=== PATIENT | female | born 1970 | race Caucasian/White ===

== ENCOUNTER 2018-03-23 09:03 | Emergency (ER) | payer OTHER, MEDICAID, SELFPAY ==
[2018-03-23 09:42] VITALS: BP 133/78; PULSE 81; RESP 18; TEMP 36.7; O2SAT 95
--- NOTE | 2018-03-23 09:45 | ED.ABDPAIN ---
HPI - Abdominal Pain General Chief Complaint: Abdominal Pain Stated Complaint: gallbladder issues Time Seen by Provider: 03/23/18 09:19 Source: patient Mode of arrival: ambulatory Limitations: no limitations History of Present Illness HPI narrative: 47-year-old female here for evaluation of right upper quadrant pain. Patient states that she had similar symptoms 2 years ago but has not had any symptoms since then. She states that last evening she had a episode of right upper quadrant pain lasting several minutes when it came on then resolving. This happen several different times. Denies any change in her diet. Denies ever having her gallbladder evaluated in the past. Related Data Home Medications Medication Instructions Recorded Confirmed albuterol sulfate [ProAir HFA] 2 puff INHALATION Q4H PRN 03/23/18 03/23/18 citalopram 1 tab PO QPM 03/23/18 03/23/18 citalopram 1 tab PO QPM 03/23/18 03/23/18 metoprolol tartrate 1 tab PO QPM 03/23/18 03/23/18 Allergies Allergy/AdvReac Type Severity Reaction Status Date / Time amoxicillin [AMOXICILLIN] Allergy Mild Hives Unverified 01/12/18 11:44 Sulfa (Sulfonamide Allergy Mild Unverified 01/12/18 11:44 Antibiotics) [SULFA (SULFONAMIDE ANTIBIOTICS)] erythromycin base Allergy Verified 03/23/18 09:42 tetracycline Allergy Verified 03/23/18 09:42 Review of Systems Constitutional Denies chills, Denies fever(s), Denies lethargy and Denies weakness Cardiovascular Denies chest pain, Denies irregular heart rhythm, Denies lightheadedness, Denies palpitations, Denies dyspnea, Denies dyspnea on exertion and Denies orthopnea Respiratory Denies cough, Denies dyspnea, Denies dyspnea on exertion and Denies wheezing Gastrointestinal Gastrointestinal: Reports abdominal pain, Denies change in bowel habits, Denies change in stool character, Denies constipation, Denies heartburn, Denies nausea and Denies vomiting Genitourinary Denies difficulty voiding and Denies dysuria Integumentary/Breasts Denies pruritus, Denies erythema, Denies rash and Denies wounds Neurologic Denies weakness Endocrine Denies palpitations Hematologic/Lymphatic Denies easy bruising Allergic/Immunologic Denies wheezing [facility] History History of breast augmentation Status post delivery Status post tubal ligation (07/01/15) Family History Father Age: 69 Hypertension Mother Age: 67 High cholesterol Social History Smoking Status: Current every day smoker Exam Initial Vital Signs Initial Vital Signs: Vital Signs Temperature 98.1 F 03/23/18 09:42 Pulse Rate 81 03/23/18 09:42 Respiratory Rate 18 03/23/18 09:42 Blood Pressure 133/78 H 03/23/18 09:42 Pulse Oximetry 95 03/23/18 09:42 Const General: cooperative and well developed Nutritional Appearance: well nourished Orientation: alert, awake, oriented x3 and not confused Resp Effort & Inspection: normal respiratory effort, able to speak in complete sentences, no respiratory distress and no use of accessory muscles Auscultation: clear to auscultation bilaterally, no rales, no rhonchi and no wheezes Cardio Rate: regular rate Rhythm: regular rhythm Heart Sounds: no click, no gallops, no murmurs and no rubs Pulses: normal peripheral pulses GI Inspection: non-distended Palpation: soft, No firm, No guarding and tender (Right upper quadrant) Back/Spine/Pelvis Back: No CVA tenderness Skin General: no rashes or lesions noted, No jaundice and No petechiae Neuro General: alert, awake and oriented x3 Cognition: normal cognition Speech: speech normal Extrem General: normal to inspection Course Orders Ordered: ED Orders 03/23/18 09:53 US abdomen complete Stat 03/23/18 10:35 Complete Blood Count AUTO DIFF Stat Comprehensive Metabolic Panel Stat Lipase Stat Vital Signs - 8 hr 03/23/18 09:42 Temperature 98.1 F Pulse Rate 81 Respiratory Rate 18 Blood Pressure 133/78 H Pulse Oximetry 95 MDM - Abdominal Pain Lab Data Attestation: I reviewed the patient's lab results. Result diagrams: 03/23/18 10:35 03/23/18 10:35 Lab Results 03/23/18 03/23/18 Range/Units 10:35 10:35 WBC 12.2 H (4.5-11.0) X10^3/uL RBC 4.83 (4.0-5.2) X10^6/uL Hgb 14.2 (12.0-16.0) g/dL Hct 42.5 (36-46) % MCV 87.9 (80-100) fL MCH 29.3 (26-34) PG MCHC 33.3 (30-36) % RDW 15.4 H (11.6-14.8) % Plt Count 270 (150-400) X10^3/uL Neut % (Auto) 70.2 (50-75) % Lymph % (Auto) 20.7 L (25-40) % Patrick % (Auto) 6.5 (3-14) % Eos % (Auto) 1.9 L (2-4) % Baso % (Auto) 0.7 (0-2) % Neut # (Auto) 8600 H (3602-4082) /uL Sodium 139 (137-145) mmol/L Potassium 4.7 (3.4-5.1) mmol/L Chloride 101 (98-107) mmol/L Carbon Dioxide 30 (22-32) mmol/L BUN 9 (7-17) mg/dL Creatinine 0.50 L (0.52-1.04) mg/dL Estimated GFR > 60.0 (>60) mL/min BUN/Creatinine Ratio 18.0 (6-22) Glucose 104 H (70-100) mg/dL Calcium 8.9 (8.4-10.2) mg/dL Total Bilirubin 0.4 (0.2-1.3) mg/dL AST 19 (14-36) IU/L ALT 22 (9-52) IU/L Alkaline Phosphatase 84 (38-126) U/L Total Protein 7.2 (6.3-8.2) g/dL Albumin 4.1 (3.5-5.0) g/dL Globulin 3.1 (1.7-4.1) g/dL Albumin/Globulin Ratio 1.3 (1.0-2.8) Lipase 46 (23-300) U/L Imaging Data Right upper quadrant ultrasound: Radiologist's impression: PROCEDURE: US ABDOMEN COMPLETE INDICATIONS: Right upper quadrant abdominal pain concern for gallbladder TECHNIQUE: Real-time scanning was performed of the abdominal and retroperitoneal organs, with image documentation. COMPARISON: None. FINDINGS: Liver: Liver is mildly enlarged in size 19.2 cm and hyperechoic in echotexture. Gallbladder: Gallbladder is clear with normal wall thickness. Biliary ducts: Intrahepatic bile ducts are non-dilated. Extrahepatic bile duct caliber measures 7 mm. Normal is 6-7 mm or less in diameter, or 10 mm or less post-cholecystectomy. Pancreas: Pancreas is obscured by bowel gas. Spleen: Spleen is normal in size and homogeneous in echotexture. Kidneys: Kidneys are normal in size and echotexture. Right kidney measures 12.0 cm long; left kidney measures 13.8 cm long. No hydronephrosis or nephrolithiasis. No solid masses. Aorta: Obscured by bowel gas Iliacs: Obscured by bowel gas IVC: Not visualized Miscellaneous: No free abdominal fluid. IMPRESSION: 1. Mild hepatomegaly and moderate steatosis 2. No apparent biliary abnormality. Common bile duct at the upper limits of normal in size. 3. Considerable bowel gas obscuring the pancreas, aortoiliac vessels and inferior vena cava. Dictated by: Yaakov Arenas M.D. on 03/23/2018 at 10:42 Approved by: Yaakov Arenas M.D. on 03/23/2018 at 10:46 [facility] Narrative Medical decision making narrative: Patient is nontoxic appearing. Has a benign abdominal exam today. Labs unremarkable. Right upper quadrant ultrasound negative for acute cholecystitis. However I do suspect that she does have gallbladder pathology given her history and physical exam and her age and her weight. Patient is instructed that she needed to contact her primary doctor for follow-up in to discuss the indications for further imaging or General surgery referral. She was given return precautions. She expressed understanding and agreement with plan Discharge Plan Departure Patient Disposition: Home, Self-Care Clinical Impression: Abdominal pain Instructions: Gallstones (Alternative Therapy), DI for Gallstones, DI for Abdominal Pain-Adult Activity Restrictions/Additional Instructions: Recommend that you contact your primary care doctor to discuss the indications for further imaging or referral to see GI or General surgery. Return to the emergency department for any new or worsening symptoms Prescriptions: No Action metoprolol tartrate 100 mg tablet 1 tab PO QPM RF: 0 citalopram 10 mg tablet 1 tab PO QPM RF: 0 citalopram 20 mg tablet 1 tab PO QPM RF: 0 albuterol sulfate [ProAir HFA] 90 mcg/actuation HFA aerosol inhaler 2 puff Inhalation Q4H PRN (Reason: Shortness Of Breath) RF: 0
--- NOTE | 2018-03-23 09:53 | DI.US.S_ITS ---
PROCEDURE: US ABDOMEN COMPLETE INDICATIONS: Right upper quadrant abdominal pain concern for gallbladder TECHNIQUE: Real-time scanning was performed of the abdominal and retroperitoneal organs, with image documentation. COMPARISON: None. FINDINGS: Liver: Liver is mildly enlarged in size 19.2 cm and hyperechoic in echotexture. Gallbladder: Gallbladder is clear with normal wall thickness. Biliary ducts: Intrahepatic bile ducts are non-dilated. Extrahepatic bile duct caliber measures 7 mm. Normal is 6-7 mm or less in diameter, or 10 mm or less post-cholecystectomy. Pancreas: Pancreas is obscured by bowel gas. Spleen: Spleen is normal in size and homogeneous in echotexture. Kidneys: Kidneys are normal in size and echotexture. Right kidney measures 12.0 cm long; left kidney measures 13.8 cm long. No hydronephrosis or nephrolithiasis. No solid masses. Aorta: Obscured by bowel gas Iliacs: Obscured by bowel gas IVC: Not visualized Miscellaneous: No free abdominal fluid. IMPRESSION: 1. Mild hepatomegaly and moderate steatosis 2. No apparent biliary abnormality. Common bile duct at the upper limits of normal in size. 3. Considerable bowel gas obscuring the pancreas, aortoiliac vessels and inferior vena cava. Dictated by: Yaakov Arenas M.D. on 03/23/2018 at 10:42 Approved by: Yaakov Arenas M.D. on 03/23/2018 at 10:46
[2018-03-23 10:46] LABS: Add Manual Diff / Slide Review NO; Basophils Percent Auto 0.7 % (0-2); Eosinophils Percent Auto 1.9 % (2-4); Hematocrit 42.5 % (36-46); Hemoglobin 14.2 g/dL (12.0-16.0); Lymphocytes Percent Auto 20.7 % (25-40); Mean Corpuscular HGB Conc 33.3 % (30-36); Mean Corpuscular Hemoglobin 29.3 PG (26-34); Mean Corpuscular Volume 87.9 fL (80-100); Monocytes Percent Auto 6.5 % (3-14); Neutrophils Absolute Auto 8600 /uL (3000-5900); Neutrophils Percent Auto 70.2 % (50-75); Platelet Count 270 X10^3/uL (150-400); Red Blood Cell Count 4.83 X10^6/uL (4.0-5.2); Red Cell Distribution Width 15.4 % (11.6-14.8); White Blood Cell Count 12.2 X10^3/uL (4.5-11.0)
[2018-03-23 10:55] LABS: Alanine Aminotransferase 22 IU/L (9-52); Albumin 4.1 g/dL (3.5-5.0); Albumin Globulin Ratio 1.3 (1.0-2.8); Alkaline Phosphatase 84 U/L (38-126); Aspartate Aminotransferase 19 IU/L (14-36); Bilirubin Total 0.4 mg/dL (0.2-1.3); Blood Urea Nitrogen 9 mg/dL (7-17); Calcium 8.9 mg/dL (8.4-10.2); Carbon Dioxide 30 mmol/L (22-32); Chloride 101 mmol/L (98-107); Estimated Glomerular Filt Rate > 60.0 mL/min (>60); Globulin 3.1 g/dL (1.7-4.1); Glucose 104 mg/dL (70-100); HEMOLYSIS < 15 (0-50); Lipase 46 U/L (23-300); Potassium 4.7 mmol/L (3.4-5.1); Sodium 139 mmol/L (137-145); Total Protein 7.2 g/dL (6.3-8.2)
[2018-03-23 11:29] VITALS: BP 141/83; PULSE 71; RESP 18; O2SAT 95
== END 2018-03-23 12:07 | disposition home or self-care (01) ==
PROVIDERS: Emergency Provider Emergency Medicine; PCP Family Medicine
DX: R10.9 Unspecified abdominal pain (principal)
CPT/HCPCS: 36591; 76700; 80053; 83690; 85025; 99282; 99284

== ENCOUNTER 2020-09-15 10:44 | Emergency (ER) | payer OTHER, MEDICAID, SELFPAY ==
[2020-09-15 11:19] VITALS: BP 174/76; PULSE 64; RESP 18; TEMP 36.2; O2SAT 98; BMI 110.4
[2020-09-15 11:46] LABS: COVID19 -Nasal RAPID Negative (Negative)
--- NOTE | 2020-09-15 12:52 | DI.RAD.S_ITS ---
PROCEDURE: XR CHEST 2V INDICATIONS: cough, wheezing TECHNIQUE: 2 views of the chest were acquired. COMPARISON: None. FINDINGS: Surgical changes and devices: None. Lungs and pleura: Lungs are clear. No pleural effusions or pneumothorax. Mediastinum: Mediastinal contours are normal. Heart size is normal. Bones and chest wall: No suspicious bony abnormalities. Soft tissues appear unremarkable. IMPRESSION: No acute cardiopulmonary abnormality identified. Dictated by: Massimo Crabtree M.D. on 09/15/2020 at 12:47 Approved by: Massimo Crabtree M.D. on 09/15/2020 at 12:48
--- NOTE | 2020-09-15 12:56 | ED_ITS ---
HPI - URI/Sore Throat <Patria Darden, [employer] - Last Filed: 09/15/20 17:54> General Stated Complaint: states cold symptoms x3wks Time Seen by Provider: 09/15/20 12:35 Source: patient Mode of arrival: Ambulatory Limitations: no limitations History of Present Illness HPI Narrative: The patient is a 49-year-old female current everyday smoker with history of sleep apnea and bronchitis who presents with a chief complaint of a cold symptoms that have been waxing and waning for the past 3 weeks. She states that she has had a cough, sometimes dry sometimes productive that comes and goes. She wonders if it might be related to her wood fire heat. She states she is having a hard time sleeping because of the cough. Denies any sore throat. Denies any ear pain, but does complain of occasional headaches with her cough. She tried using her albuterol from his previous prescription but does not use a spacer. She denies any current nausea vomiting, but states that she has been nauseous a few times throughout the past few weeks. She denies any dysuria urgency or frequency. She denies any chest pain she denies any shortness of breath, but states she feels as though she cannot catch a deep breath due to coughing. She states that she has been sneezing a lot, feels congested, denies any sore throat but complains of postnasal drip. She denies any abdominal pain. She has tried Coricidin HBP, nasal rinses, and other tnyb-zvz-lsangim medications including acetaminophen and ibuprofen. She states that he has had a sinus headache since the beginning of this, it radiates to her teeth. She states her headache feels worse when she leans forward. She states that she thought she was getting better, that she got worse. She was concerned about coronavirus, and was tested negative in triage today. She states that she has not taken anything to feel better today. Related Data Home Medications Medication Instructions Recorded Confirmed albuterol sulfate [ProAir HFA] 2 puff INHALATION Q4H PRN 03/23/18 09/12/19 citalopram 1 tab PO QPM 03/23/18 09/12/19 citalopram 1 tab PO QPM 03/23/18 09/12/19 metoprolol tartrate 1 tab PO QPM 03/23/18 09/12/19 Respironics Dreamstation CPAP #1 ea 12/13/18 09/12/19 Previous Rx's Medication Instructions Recorded azithromycin See Rx Instructions .ROUTE 09/15/20 .COMPLEX #6 tab promethazine-DM 5 ml PO Q4-6H PRN #50 ml 09/15/20 Allergies Allergy/AdvReac Type Severity Reaction Status Date / Time amoxicillin [AMOXICILLIN] Allergy Mild Hives Unverified 03/14/19 08:40 Sulfa (Sulfonamide Allergy Mild Unverified 03/14/19 08:40 Antibiotics) [SULFA (SULFONAMIDE ANTIBIOTICS)] erythromycin base Allergy Verified 03/14/19 08:40 tetracycline Allergy Verified 03/14/19 08:40 Review of Systems <MERLE Novak - Last Filed: 09/15/20 17:54> Review of Systems Narrative: GENERAL: See HPI HEENT: See HPI RESPIRATORY: See HPI CARDIOVASCULAR: Denies chest pain, palpitations, orthopnea, edema, GASTROINTESTINAL: Denies nausea, vomiting, abdominal pain, diarrhea, constipation, melena. : Denies dysuria, frequency, incontinence, hematuria, urinary retention. MUSCULOSKELETAL: denies weakness, joint pain, or bony pain SKIN: Denies rash, skin lesions, or other NEUROLOGIC: Denies weakness, headache, numbness, change in speech, confusion, seizures, incoordination. PSYCHIATRIC: No concerning psychosocial issues. 12 point review of systems is negative except for those stated above Patient History <MERLE Novak - Last Filed: 09/15/20 17:54> Medical History (Updated 09/15/20 @ 14:14 by MERLE Novak) Asthma Depression Hypertension Morbid obesity with BMI of 45.0-49.9, adult Morbid obesity with body mass index (BMI) of 50.0 to 59.9 in adult Obstructive sleep apnea of adult (~08/2018) Snoring Tobacco dependency Surgical History History of breast augmentation Status post delivery Status post tubal ligation (07/01/15) Family History Father Age: 72 Hypertension Mother Age: 70 High cholesterol Social History marital status: unmarried,living together details: with Soham Valencia, in [place] number of children: 2 household members: significant other and children lives independently: Yes caregiver/support person: No housing: house occupational status: employed Smoking Status: Current every day smoker alcohol intake: former substance use type: does not use Smoking Status: Current every day smoker alcohol intake frequency: 0-2 drinks per day Substance Use Type: does not use Exam <MERLE Novak - Last Filed: 09/15/20 17:54> Narrative Exam Narrative: GENERAL: This is a well-nourished, well-developed patient, in no acute distress HEAD: Atraumatic. Normocephalic. Bilateral frontal sinus pain to palpation. EYES: Pupils equal round and reactive. Extraocular motions intact. No scleral icterus. No injection or drainage. ENT: Nose without bleeding, purulent drainage or septal hematoma. Throat without erythema, tonsillar hypertrophy or exudate. Uvula midline. Airway patent. Cobblestoning noted. Bilateral TMs pearly hairston. NECK: Trachea midline. No JVD or lymphadenopathy. Supple, nontender, no meningeal signs. CARDIOVASCULAR: Regular rate and rhythm RESPIRATORY: Coarse bilaterally to auscultation. Breath sounds equal bilaterally. No wheezes, rales, or rhonchi. No increased respiratory effort. Speaking full sentences. Occasional dry cough during exam. GASTROINTESTINAL: Abdomen soft, non-tender, nondistended. No hepato- splenomegaly, or palpable masses. No guarding. EXTREMITIES: No clubbing, cyanosis, or edema. No joint tenderness, effusion, or edema noted. BACK: Nontender without deformity or crepitance. No flank tenderness. NEURO: AOx3. SKIN: No rash or erythema on visible skin. Initial Vital Signs Initial Vital Signs: Vital Signs Temperature 97.2 F L 09/15/20 11:19 Pulse Rate 64 09/15/20 11:19 Respiratory Rate 18 09/15/20 11:19 Blood Pressure 174/76 H 09/15/20 11:19 Pulse Oximetry 98 09/15/20 11:19 <Ivette Stockton MD - Last Filed: 09/17/20 07:28> Initial Vital Signs Initial Vital Signs: Vital Signs Temperature 97.2 F L 12/13/20 11:19 Pulse Rate 64 09/15/20 11:19 Respiratory Rate 18 09/15/20 11:19 Blood Pressure 174/76 H 09/15/20 11:19 Pulse Oximetry 98 09/15/20 11:19 Scores <MERLE Novak - Last Filed: 09/15/20 17:54> GCS Circle coma scale eye opening: Spontaneous Circle coma scale verbal response: Orientated Boby coma scale motor response: Obey commands Boby coma scale total score: 15 Course <MERLE Novak - Last Filed: 09/15/20 17:54> Orders Ordered: ED Orders 09/15/20 11:15 COVID19 Stat 09/15/20 12:52 XR chest 2V Stat RT Consult Eval and Treat NOW Vital Signs Vital signs: Vital Signs - 8 hr 09/15/20 11:19 09/15/20 13:25 09/15/20 13:26 Temperature 97.2 F L Pulse Rate 64 59 L Respiratory Rate 18 Blood Pressure 174/76 H 137/64 Pulse Oximetry 98 97 97 09/15/20 14:37 09/15/20 14:38 09/15/20 14:43 Temperature Pulse Rate 64 62 68 Respiratory Rate 18 Blood Pressure 175/103 H 168/75 H Pulse Oximetry 98 97 96 <Ivette Stockton MD - Last Filed: 09/17/20 07:28> Orders Ordered: ED Orders 09/15/20 11:15 COVID19 Stat 09/15/20 12:52 XR chest 2V Stat RT Consult Eval and Treat NOW Vital Signs Vital signs: Vital Signs - 8 hr 09/15/20 11:19 09/15/20 13:25 09/15/20 13:26 Temperature 97.2 F L Pulse Rate 64 59 L Respiratory Rate 18 Blood Pressure 174/76 H 137/64 Pulse Oximetry 98 97 97 09/15/20 14:37 09/15/20 14:38 09/15/20 14:43 Temperature Pulse Rate 64 62 68 Respiratory Rate 18 Blood Pressure 175/103 H 168/75 H Pulse Oximetry 98 97 96 MDM - URI/Sore Throat <MERLE Novak - Last Filed: 09/15/20 17:54> Differential Diagnosis Differential diagnosis: Likely upper respiratory infection, otitis media, viral infection and pharyngitis Lab Data Labs: Lab Results 09/15/20 Range/Units 11:15 COVID-19 PCR Negative (Negative) Urine Dip Bedside Urine Glucose Negative Bedside Urine Bilirubin - Negative Bedside Urine Ketone - Negative Urine Specific Horner 1.010 Bedside Urine Occult Blood +/- Bedside Urine pH 7.0 Bedside Urine Protein - Negative Bedside Urine Urobilinogen - Negative Bedside Urine Nitrite - Negative Bedside Urine Leukocytes - Negative Esterase Imaging Data Chest x-ray: Radiologist's Impression: [address] [place] [id number] ReportSigned Patient: Adelita Joseph RMR#: [id number]: [id number]:[id number]/Sex: 49 / FDate of Service: 09/15/20Loc: EDAccession Number: [id number] Procedure: XR chest 2V Ordering Provider: Patria Darden PROCEDURE: XR CHEST 2V INDICATIONS: cough, wheezing TECHNIQUE: 2 views of the chest were acquired. COMPARISON: None. FINDINGS: Surgical changes and devices: None. Lungs and pleura: Lungs are clear. No pleural effusions or pneumothorax. Mediastinum: Mediastinal contours are normal. Heart size is normal. Bones and chest wall: No suspicious bony abnormalities. Soft tissues appear unremarkable. IMPRESSION: No acute cardiopulmonary abnormality identified. Dictated by: Massimo Crabtree M.D. on 09/15/2020 at 12:47 Approved by: Massimo Crabtree M.D. on 09/15/2020 at 12:48 [facility] Narrative Medical decision making narrative: The patient is a 49-year-old female who presents with almost 2 weeks of sinus pressure, ear pain, and cough. She also has muscle aches and chills. It is noted that her headache is worse when she leans forward, it radiates to her teeth. Given her prolonged time of sinus pain, double sickening, headache radiating to her teeth as well as her signs of systemic symptoms I elected to treat her for acute bacterial sinusitis. She does sitting at her for coronavirus today, and had a negative chest x-ray. She has been using xumx-eky-fenofow remedies such as NeilMed sinus rinse, Flonase and Coricidin HBP. Encouraged her to keep using these remedies in addition to antibiotics. She is allergic to multiple things including amoxicillin, tetracycline etcetera. Thus we elected to use azithromycin, I discussed that this is not the most optimal antibiotic to use for this syndrome, however we were elevated given her allergies. She states that she has taken this prior, but not recently and has had no interactions or side effects. I encouraged her to follow up with primary care provider in the next few days, continue zysp-bss-grgbiiy medications as she has been doing. Discussed coming back to ER for acute concerns including chest pain, shortness of breath etcetera. Patient has no questions or concerns upon discharge and states understanding return precautions as well as follow-up care. <Ivette Stockton MD - Last Filed: 09/17/20 07:28> Lab Data Labs: Lab Results 09/15/20 Range/Units 11:15 COVID-19 PCR Negative (Negative) Urine Dip Bedside Urine Glucose Negative Bedside Urine Bilirubin - Negative Bedside Urine Ketone - Negative Urine Specific Horner 1.010 Bedside Urine Occult Blood +/- Bedside Urine pH 7.0 Bedside Urine Protein - Negative Bedside Urine Urobilinogen - Negative Bedside Urine Nitrite - Negative Bedside Urine Leukocytes - Negative Esterase Discharge Plan Departure Patient Disposition: Home Clinical Impression: Acute bacterial sinusitis, Cough Instructions: Sinusitis (Alternative Therapy), DI for Sinusitis, DI for Cough -- Adult Activity Restrictions/Additional Instructions: Thank you for trusting us with your care today. As discussed, your x-ray came back with no acute findings. However given the du ration of your symptoms, the sinus pain and pressure I have elected to treat you for acute bacterial sinusitis. Please follow-up with primary care provider in the next few days. I sent her antibiotic prescription to look [facility]. Please take this with probiotic or yogurt to help prevent antibiotic related diarrhea. I also sent a prescription of some cough medicine to help you sleep. Do not take this and drive or take it with anything sedating. Please come back to the emergency department for any acute concerns. Prescriptions: New promethazine-DM 6.25-15 mg/5 mL syrup 5 ml PO Q4-6H PRN (Reason: cough) Qty: 50 RF: 0 azithromycin 250 mg tablet See Rx Instructions .ROUTE .COMPLEX Qty: 6 RF: 0 No Action metoprolol tartrate 100 mg tablet 1 tab PO QPM RF: 0 citalopram 10 mg tablet 1 tab PO QPM RF: 0 citalopram 20 mg tablet 1 tab PO QPM RF: 0 albuterol sulfate [ProAir HFA] 90 mcg/actuation HFA aerosol inhaler 2 puff Inhalation Q4H PRN (Reason: Shortness Of Breath) RF: 0 (DME) Respironics Dreamstation CPAP Qty: 1 RF: 0 Referrals: Rodolfo Law MD [Primary Care Provider] - <Ivette Stockton MD - Last Filed: 09/17/20 07:28> Cosign ED Attending Cosignature Attestation: I was immediately available in the department for consultation throughout this patient's visit. I agree with documentation as above. Ivette Stockton MD
[2020-09-15 13:25] VITALS: O2SAT 97
[2020-09-15 13:26] VITALS: BP 137/64; PULSE 59; O2SAT 97
[2020-09-15 14:37] VITALS: PULSE 64; O2SAT 98
[2020-09-15 14:38] VITALS: BP 175/103; PULSE 62; O2SAT 97
[2020-09-15 14:43] VITALS: BP 168/75; PULSE 68; RESP 18; O2SAT 96
== END 2020-09-15 14:43 | disposition home or self-care (01) ==
PROVIDERS: Emergency Medicine; Emergency Provider Nurse Practitioner Family; PCP Family Medicine
DX: J01.80 Other acute sinusitis (principal); R05 Cough; R51.9 Headache, unspecified; R09.82 Postnasal drip; E66.01 Morbid (severe) obesity due to excess calories; Z68.45 Body mass index [BMI] 70 or greater, adult; I10 Essential (primary) hypertension; J45.909 Unspecified asthma, uncomplicated
CPT/HCPCS: 71046; 81003; 87635; 99281; 99283

== ENCOUNTER 2021-03-18 16:33 | Emergency (ER) | payer OTHER, MEDICAID, SELFPAY ==
[2021-03-18 16:37] VITALS: BP 176/87; PULSE 68; RESP 20; TEMP 36.4; O2SAT 97; BMI 48.9
[2021-03-18 18:23] VITALS: BP 163/81; PULSE 76; TEMP 36.8; O2SAT 97
--- NOTE | 2021-03-18 18:36 | PC.NURSE ---
Defer rectal assessment to provider
--- NOTE | 2021-03-19 04:52 | ED.SKABFB ---
HPI - Skin/Abscess/Foreign Bdy General Chief complaint: Skin/Abscess/Foreign Body Stated complaint: rectal pain Source: patient Mode of arrival: Ambulatory Limitations: no limitations Related Data Home Medications Medication Instructions Recorded Confirmed albuterol sulfate [ProAir HFA] 2 puff INHALATION Q4H PRN 03/23/18 09/12/19 citalopram 1 tab PO QPM 03/23/18 09/12/19 citalopram 1 tab PO QPM 03/23/18 09/12/19 metoprolol tartrate 1 tab PO QPM 03/23/18 09/12/19 Respironics Dreamstation CPAP #1 ea 12/13/18 09/12/19 Previous Rx's Medication Instructions Recorded azithromycin See Rx Instructions .ROUTE 09/15/20 .COMPLEX #6 tab promethazine-DM 5 ml PO Q4-6H PRN #50 ml 09/15/20 Allergies Allergy/AdvReac Type Severity Reaction Status Date / Time amoxicillin [AMOXICILLIN] Allergy Mild Hives Unverified 03/14/19 08:40 Sulfa (Sulfonamide Allergy Mild Unverified 03/14/19 08:40 Antibiotics) [SULFA (SULFONAMIDE ANTIBIOTICS)] erythromycin base Allergy Verified 03/14/19 08:40 tetracycline Allergy Verified 03/14/19 08:40 Patient History Medical History (Updated 03/18/21 @ 19:58 by Loan Luong RN) Asthma Depression Hypertension Morbid obesity with BMI of 45.0-49.9, adult Morbid obesity with body mass index (BMI) of 50.0 to 59.9 in adult Obstructive sleep apnea of adult (~08/2018) Snoring Tobacco dependency Surgical History History of breast augmentation Status post delivery Status post tubal ligation (07/01/15) Family History Father Age: 72 Hypertension Mother Age: 70 High cholesterol Social History marital status: unmarried,living together details: with Soham Valencia, in [place] number of children: 2 household members: significant other and children lives independently: Yes caregiver/support person: No housing: house occupational status: employed Smoking Status: Current every day smoker alcohol intake: former substance use type: does not use Smoking Status: Current every day smoker alcohol intake frequency: 0-2 drinks per day Substance Use Type: marijuana Exam Initial Vital Signs Initial Vital Signs: Vital Signs Temperature 97.5 F L 03/18/21 16:37 Pulse Rate 68 03/18/21 16:37 Respiratory Rate 20 03/18/21 16:37 Blood Pressure 176/87 H 03/18/21 16:37 Pulse Oximetry 97 03/18/21 16:37 Discharge Plan Departure Patient Disposition: Left Without Being Seen Clinical Impression: Patient left before evaluation by physician
== END 2021-03-18 19:58 | disposition left against medical advice (07) ==
PROVIDERS: Emergency Provider Emergency Medicine; PCP Family Medicine
CPT/HCPCS: 99281

== ENCOUNTER → 2021-03-25 09:41 | Outpatient (CLI) | payer OTHER, MEDICAID, SELFPAY ==
--- NOTE | 2021-03-25 09:42 | DI.US.S_ITS ---
PROCEDURE: US PELVIC COMPLETE INDICATIONS: MENORRHAGIA TECHNIQUE: Real-time scanning was performed of the pelvic organs, with image documentation. Additional endovaginal scanning was necessary due to incomplete visualization of the adnexal and endometrial structures by transabdominal scanning. COMPARISON: None. FINDINGS: Uterus: Uterus is anteverted and normal in size at 9.1 x 7.2 x 5.2 cm. Multiple fibroids. For example mid anterior intramural fibroid measuring 2 cm. Left anterior intramural fibroid measuring 2.4 cm. Mid anterior intramural fibroid measuring 2 cm. The endometrium measures 10 mm in combined thickness. Ovaries: Not seen. Other: No pathologic free abdominal or pelvic fluid. IMPRESSION: 1. A few small intramural fibroids. Largest measuring 2.4 cm. 2. Ovaries are not seen. No free fluid seen. 3. Endometrial thickness measuring at 10 mm. Dictated by: Massimo Crabtree M.D. on 03/25/2021 at 11:34 Approved by: Massimo Crabtree M.D. on 03/25/2021 at 11:36
== END ==
PROVIDERS: PCP Family Medicine; Referring Provider Obstetrics & Gynecology; Visit Provider Obstetrics & Gynecology
DX: N92.0 Excessive and frequent menstruation with regular cycle (principal); D25.1 Intramural leiomyoma of uterus; Z98.51 Tubal ligation status
CPT/HCPCS: 76830; 76856

== ENCOUNTER 2024-07-08 12:00 | Emergency (ER) | payer OTHER, MEDICAID, SELFPAY ==
[2024-07-08 12:03] VITALS: BP 147/82; PULSE 66; RESP 16; TEMP 36.8; O2SAT 99; BMI 39.1
--- NOTE | 2024-07-08 12:06 | DI.RAD.S_ITS ---
PROCEDURE: XR SHOULDER RT MIN 2V INDICATIONS: fall, pain TECHNIQUE: 3 views of the shoulder were acquired. COMPARISON: None. FINDINGS: Bones: No fractures or dislocations. No suspicious bony lesions. Visualized ribs appear intact. Acromioclavicular joint hypertrophy. Soft tissues: No suspicious soft tissue calcifications. IMPRESSION: No acute bony abnormality. Approved by: Dagoberto Novak M.D. on 07/08/2024 at 11:41
[2024-07-08] MEDS: ACETAMINOPHEN 325 MG TABLET 975 MG PO (12:48)
--- NOTE | 2024-07-08 12:50 | PC.NURSE ---
Pt denies right elbow or right wrist pain. CMS intact distally. Has sharp pain when trying to lift her shoulder. Cap refill less than 2 seconds.
--- NOTE | 2024-07-08 13:23 | ED.UPPEXIN ---
HPI - Extremity Injury (Upper) <Rell Uribe PA-C - Last Filed: 07/08/24 13:46> General Chief Complaint: Extremity Injury, Upper Stated Complaint: Fall, shoulder px, no blood thinners Time Seen by Provider: 07/08/24 12:08 Source: patient and family Mode of arrival: Ambulatory History of Present Illness HPI narrative: This patient is a 53-year-old female that presents today for a fall and contusion to the right shoulder after attempting to walk her dog in the dark last night. Apparently the dog yanked on the lesion causing the patient had sustained a fall to the right upper extremity. She denies head strike, neck pain, chest pain or shortness of breath. No treatments have been tried for this. She is complaining of right shoulder pain without numbness or tingling distally but has decreased range of motion secondary to discomfort. Patient has not taken any medications since the time of the incident last night. She also denies back pain, abdominal pain, hip pain or difficulty with gait. She denies paresthesias distally to the right upper extremity. Related Data Home Medications Medication Instructions Recorded Confirmed albuterol sulfate 90 mcg/actuation 2 puff inhalation Q4H PRN 03/23/18 09/01/22 aerosol inhaler Shortness Of Breath citalopram 10 mg tablet 1 tab PO QPM 03/23/18 09/01/22 citalopram 20 mg tablet 1 tab PO QPM 03/23/18 09/01/22 metoprolol tartrate 100 mg tablet 1 tab PO QPM 03/23/18 09/01/22 Respironics Dreamstation CPAP #1 ea 12/13/18 09/01/22 atorvastatin 40 mg tablet (Lipitor) 40 mg PO BEDTIME 03/27/21 09/01/22 metformin 500 mg tablet 500 mg PO BID 03/27/21 09/01/22 Previous Rx's Medication Instructions Recorded promethazine-DM 6.25 mg-15 mg/5 mL 5 ml PO Q4-6H PRN cough #50 mL 09/15/20 oral syrup naproxen 500 mg tablet 500 mg PO TID PRN menstrual pain 03/27/21 #30 tabs nitroglycerin 0.4 % (w/w) rectal 1 inch NV BID #30 grams 08/20/21 ointment tranexamic acid 650 mg tablet 1,300 mg (2 x 650 mg) PO 3XD #30 04/16/23 tabs diclofenac sodium 1 % topical gel 2 g topical QID PRN Pain #100 grams 07/08/24 meloxicam 7.5 mg tablet 7.5 mg PO BID PRN Pain #20 tabs 07/08/24 Allergies Allergy/AdvReac Type Severity Reaction Status Date / Time amoxicillin [AMOXICILLIN] AdvReac Mild Hives Unverified 07/08/24 12:03 Sulfa (Sulfonamide AdvReac Mild Rash Unverified 07/08/24 12:03 Antibiotics) [SULFA (SULFONAMIDE ANTIBIOTICS)] erythromycin base AdvReac Rash Verified 07/08/24 12:03 tetracycline AdvReac Rash Verified 07/08/24 12:03 Review of Systems <Rell Uribe PA-C - Last Filed: 07/08/24 13:46> Review of Systems Narrative: General: See HPI MSK: See HPI All other review of systems have been reviewed and ultimately negative unless otherwise stated in the HPI. 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 Fibroids, intramural Metabolic syndrome Severe dysmenorrhea Menorrhagia with regular cycle Anal fissure Morbid obesity with body mass index (BMI) of 50.0 to 59.9 in adult Depression Asthma Tobacco dependency Hypertension Morbid obesity with BMI of 45.0-49.9, adult Obstructive sleep apnea of adult (~08/2018) Snoring Surgical History Status post tubal ligation (07/01/15) Status post delivery History of breast augmentation Family History Father Age: 76 Hypertension Mother Age: 74 High cholesterol Social History marital status: unmarried,living together details: with Soham Valencia, in [place] number of children: 2 household members: significant other and children lives independently: Yes caregiver/support person: No housing: house occupational status: employed Smoking Status: Current every day smoker alcohol intake: former substance use type: does not use Smoking Status: Current every day smoker alcohol intake frequency: 0-2 drinks per day Substance Use Type: marijuana Exam <Rell Uribe PA-C - Last Filed: 07/08/24 13:46> Initial Vital Signs Initial Vital Signs: Vital Signs Temperature 98.2 F 07/08/24 12:03 Pulse Rate 66 07/08/24 12:03 Respiratory Rate 16 07/08/24 12:03 Blood Pressure 147/82 H 07/08/24 12:03 Pulse Oximetry 99 07/08/24 12:03 Oxygen Delivery Method Room Air 07/08/24 12:03 Const General: cooperative, healthy appearing, comfortable, well developed and well groomed [facility] Head: normal to inspection, normocephalic and atraumatic Ears: hearing grossly normal bilaterally and external ears normal Nose: external nose normal and nares normal Face and sinus: normal facial exam Mouth: oral mucosae normal, lip normal and tongue normal Teeth and gingiva: dentition normal and gingiva normal Throat: posterior oropharynx normal Eyes General: Yes appearance normal, both eyes and all related structures Neck Neck: normal visual inspection, full ROM and no meningeal signs Resp Effort & Inspection: normal respiratory effort and able to speak in complete sentences Auscultation: clear to auscultation bilaterally Cardio Rate: regular rate Rhythm: regular rhythm Heart Sounds: S1 normal and S2 normal Back/Spine/Pelvis Back: normal to inspection and back tenderness Skin General: no rashes or lesions noted, elasticity normal and turgor normal Other: No abrasions, lacerations or ecchymosis noted Neuro Cranial Nerves: CN's II-XI intact bilaterally, sense of smell intact and PERRL Extrem Other: Patient has tenderness to palpation over the right AC joint but is neurovascularly distally intact. Full range of motion of the elbow and wrist of the right upper extremity. Capillary refills less than 2 seconds. Patient has decreased range of motion of the right shoulder secondary to pain. No step-offs, soft tissue swelling noted. Psych Appearance: grossly normal and well kempt <Nellie Mcdaniels DO - Last Filed: 07/09/24 07:35> Initial Vital Signs Initial Vital Signs: Vital Signs Temperature 98.2 F 07/08/24 12:03 Pulse Rate 66 07/08/24 12:03 Respiratory Rate 16 07/08/24 12:03 Blood Pressure 147/82 H 07/08/24 12:03 Pulse Oximetry 99 07/08/24 12:03 Oxygen Delivery Method Room Air 07/08/24 12:03 Course <Rell Uribe PA-C - Last Filed: 07/08/24 13:46> Course Course Narrative: Patient was seen and examined. X-rays of the right shoulder were ordered at the time of triage and interpreted by the radiologist as a normal study. Patient was fitted for a shoulder sling which was applied by nursing staff under my direct supervision. Neurovascular status distally remained intact. Patient tolerated procedure well. She was also given Tylenol prior to discharge. Patient was informed of the negative findings and I will start her on Voltaren topical gel as well as meloxicam. Patient understands the treatment plan. No additional questions at the time of discharge and she will follow up as requested. Orders Ordered: Discontinued Medications Acetaminophen (Acetaminophen 325 Mg Tablet) 975 mg PO NOW ONE Stop: 07/08/24 12:44 Last Admin: 07/08/24 12:48 Dose: 975 mg Documented By: SPF Vital Signs Vital signs: Vital Signs - 8 hr 07/08/24 12:03 07/08/24 13:39 Temperature 98.2 F Pulse Rate 66 64 Respiratory Rate 16 20 Blood Pressure 147/82 H 133/79 Pulse Oximetry 99 97 Oxygen Delivery Method Room Air Room Air <Nellie Mcdaniels DO - Last Filed: 07/09/24 07:35> Orders Ordered: Discontinued Medications Acetaminophen (Acetaminophen 325 Mg Tablet) 975 mg PO NOW ONE Stop: 07/08/24 12:44 Last Admin: 07/08/24 12:48 Dose: 975 mg Documented By: SPF Vital Signs Vital signs: Vital Signs - 8 hr 07/08/24 12:03 07/08/24 13:39 Temperature 98.2 F Pulse Rate 66 64 Respiratory Rate 16 20 Blood Pressure 147/82 H 133/79 Pulse Oximetry 99 97 Oxygen Delivery Method Room Air Room Air MDM - Extremity Injury (Upper) <Rell Uribe PA-C - Last Filed: 07/08/24 13:46> Differential Diagnosis Differential diagnosis: Likely dislocation of shoulder, fracture of humerus, fracture of clavicle and other (Shoulder contusion, shoulder strain/sprain, AC joint separation, neurovascular injury as well as others) Medical Records Attestation: I reviewed the patient's medical records. [facility] Narrative Medical decision making narrative: At this time, the patient appears to have sustained a fall as well as shoulder contusion and sprain/strain related injuries. I do not believe she sustained any type of cervical fracture or skull fracture. There was no head strike and the patient has no neck pain on exam. I also do not believe she sustained any type of neurovascular injury. The patient appears clinically stable for outpatient follow up. She was advised of the negative findings but was also advised that she may require physical therapy and/or an MRI on an outpatient basis for subjective pain symptoms continue. Patient understands the treatment plan. No additional questions at the time of discharge and she will follow up as requested. Discharge Plan Departure Patient Disposition: Home Clinical Impression: Right shoulder strain Qualifiers: Encounter type: initial encounter Qualified Code(s): S46.911A - Strain of unspecified muscle, fascia and tendon at shoulder and upper arm level, right arm, initial encounter Fall Qualifiers: Encounter type: initial encounter Qualified Code(s): W19.XXXA - Unspecified fall, initial encounter Contusion of right shoulder Qualifiers: Encounter type: initial encounter Qualified Code(s): S40.011A - Contusion of right shoulder, initial encounter Instructions: DI for Shoulder Sprain Activity Restrictions/Additional Instructions: Use the shoulder sling as needed Stretch the shoulder as tolerated and as discussed Apply moist heat to the affected area 10 minutes at a time 5 times a day Start the medications today as prescribed Follow up your PCP next week for recheck as you may require physical therapy and/or an MRI on an outpatient basis Return here for any new, emergent concerns or if he should worsen in any way Prescriptions: New meloxicam 7.5 mg tablet 7.5 mg PO BID PRN (Reason: Pain) Qty: 20 0RF diclofenac sodium 1 % gel 2 g topical QID PRN (Reason: Pain) Qty: 100 0RF Rx Instructions: apply to single elbow, wrist or hand; for hand includes palm/fingers/back of hand No Action tranexamic acid 650 mg tablet 1,300 mg PO 3XD Qty: 30 12RF metformin 500 mg tablet 500 mg PO BID atorvastatin [Lipitor] 40 mg tablet 40 mg PO BEDTIME naproxen 500 mg tablet 500 mg PO TID PRN (Reason: menstrual pain) Qty: 30 12RF Rx Instructions: Begin taking 1-2 prior to start of each period. nitroglycerin 0.4 % (w/w) ointment 1 inch NV BID Qty: 30 0RF metoprolol tartrate 100 mg tablet 1 tab PO QPM Patient Comments: TAKE 1 TABLET BY MOUTH ONCE A DAY FOR BLOOD PRESSURE CONTROL. citalopram 10 mg tablet 1 tab PO QPM Patient Comments: TAKE ONE BY MOUTH EVERY DAY IN ADDITION TO 20MG TABLET FOR A TOTAL OF30MG PER DAY. citalopram 20 mg tablet 1 tab PO QPM Patient Comments: TAKE ONE BY MOUTH EVERY DAY IN ADDITION TO 10MG TABLET FOR A TOTAL OF30MG DAILY albuterol sulfate [ProAir HFA] 90 mcg/actuation HFA aerosol inhaler 2 puff Inhalation Q4H PRN (Reason: Shortness Of Breath) Patient Comments: INHALE 2 PUFFS EVERY 4 HOURS NEEDED FOR SHORTNESS OF BREATH promethazine-DM 6.25-15 mg/5 mL syrup 5 ml PO Q4-6H PRN (Reason: cough) Qty: 50 0RF (DME) Respironics Dreamstation CPAP Qty: 1 Dose Instruction: As directed Patient Comments: pressure: 12-16 cmH2O DME: [facility] Rx Instructions: As directed Referrals: Isaiah Yang MD [Primary Care Provider] - Stand Alone Forms: Patient Portal/API ED Sign-out <Nellie Mcdaniels DO - Last Filed: 07/09/24 07:35> Cosign ED Attending Mayda Attestation: I was available for consultation.
[2024-07-08 13:39] VITALS: BP 133/79; PULSE 64; RESP 20; O2SAT 97
== END 2024-07-08 13:40 | disposition home or self-care (01) ==
PROVIDERS: Emergency Provider Physician Assistant; PCP Family Medicine
DX: S46.911A Strain of unspecified muscle, fascia and tendon at shoulder and upper arm level, right arm, initial encounter (principal); S40.011A Contusion of right shoulder, initial encounter; W18.30XA Fall on same level, unspecified, initial encounter; Z79.899 Other long term (current) drug therapy
CPT/HCPCS: 73030; 99283

== ENCOUNTER → 2024-08-12 09:43 | Outpatient (CLI) | payer OTHER, MEDICAID, SELFPAY ==
--- NOTE | 2024-08-12 09:44 | DI.MRI.S_ITS ---
PROCEDURE: MR SHOULDER RT WO CON INDICATIONS: weakness of right shoulder TECHNIQUE: Noncontrast oblique coronal T2 fast spin echo with fat saturation, oblique sagittal T1 spin echo and T2 fast spin echo with fat saturation, axial T1 spin echo and T2 fast spin echo with fat saturation through the shoulder. COMPARISON: None. FINDINGS: Image quality: Excellent. Rotator cuff: There is low to moderate grade articular and bursal surface partial thickness tear involving distal supraspinatus extending to musculotendinous junction. Low-grade articular surface partial-thickness tear involving distal infraspinatus at its insertion on the humeral head is noted. Tendinosis and low-grade partial-thickness tear involving distal subscapularis near its insertion on the humeral head is seen. No full-thickness rotator cuff tendon rupture. Sagittal images demonstrate mild supraspinatus muscle atrophy. Bones and bursae: Marrow edema and subcortical cystic changes are noted involving greater tuberosity of humeral head near distal subscapularis tendon insertion. No discrete fracture line. Moderate acromioclavicular joint osteoarthritic changes are seen with joint space narrowing and downward osteophyte formation depressing the musculotendinous junction of supraspinatus. Type 2 acromion without an os acromiale. Moderate to large amount of subacromial subdeltoid bursal fluid is seen with mild thickening of bursal lining concerning for bursitis. No gross loose bodies. Capsule and soft tissues: There is signal abnormality and fraying of anterior inferior labrum suggestive of anterior inferior glenoid labral tear. The long head of the biceps tendon demonstrates normal location and morphology. The rotator interval appears normal, without fibrosis. The coracohumeral ligament is normal in thickness. IMPRESSION: 1. Low to moderate grade articular and bursal surface partial thickness tear involving distal supraspinatus extending to musculotendinous junction. Low-grade articular surface partial-thickness tear involving distal infraspinatus. Tendinosis and low-grade intrasubstance partial-thickness tear involving distal subscapularis. No full-thickness rotator cuff tendon rupture. Mild supraspinatus muscle atrophy. 2. Contusion versus avulsion injury involving greater tuberosity of humeral head. No acute fracture or dislocation. Moderate acromioclavicular joint osteoarthritis. Moderate to large subacromial subdeltoid bursal fluid with mildly thickened bursal lining concerning for bursitis. No gross loose bodies. 3. Finding is suggestive of anterior-inferior glenoid labral tear. Dictated by: Collin Lynch M.D. on 08/14/2024 at 15:10 Approved by: Collin Lynch M.D. on 08/14/2024 at 15:14
== END ==
PROVIDERS: PCP Family Medicine; Referring Provider Family Medicine; Visit Provider Family Medicine
DX: M75.111 Incomplete rotator cuff tear or rupture of right shoulder, not specified as traumatic (principal); R29.898 Other symptoms and signs involving the musculoskeletal system; M19.011 Primary osteoarthritis, right shoulder
CPT/HCPCS: 73221

== ENCOUNTER 2024-11-26 08:09 | Emergency (ER) | payer OTHER, SELFPAY ==
[2024-11-26 08:17] VITALS: BP 132/74; PULSE 73; O2SAT 96
[2024-11-26 08:21] VITALS: BP 132/74; PULSE 74; RESP 16; TEMP 37.1; O2SAT 96; BMI 42.4
[2024-11-26 08:30] VITALS: BP 115/73; PULSE 71; O2SAT 96
--- NOTE | 2024-11-26 08:36 | ED.URI ---
HPI - URI/Sore Throat General Chief Complaint: Upper Respiratory Symptoms Stated Complaint: Fever x7 days, aches, headache, cough Time Seen by Provider: 11/26/24 08:16 Source: patient Mode of arrival: Family Vehicle History of Present Illness HPI Narrative: A 53-year-old female with a history of obesity smoking asthma and hypertension presenting with 1 week of fevers cough nasal congestion and diarrhea. Says that the diarrhea happened at the beginning of the illness has now result. She has had fevers throughout the week most recently last night and 102.8. She has had nausea without vomiting. She is not having abdominal pain or urinary symptoms. Feels a little short of breath without wheezing, has an albuterol inhaler which is old probably . Related Data Home Medications Medication Instructions Recorded Confirmed albuterol sulfate 90 mcg/actuation 2 puff inhalation Q4H PRN 03/23/18 09/01/22 aerosol inhaler Shortness Of Breath citalopram 10 mg tablet 1 tab PO QPM 03/23/18 09/01/22 citalopram 20 mg tablet 1 tab PO QPM 03/23/18 09/01/22 metoprolol tartrate 100 mg tablet 1 tab PO QPM 03/23/18 09/01/22 Respironics Dreamstation CPAP #1 ea 12/13/18 09/01/22 atorvastatin 40 mg tablet (Lipitor) 40 mg PO BEDTIME 03/27/21 09/01/22 metformin 500 mg tablet 500 mg PO BID 03/27/21 09/01/22 Previous Rx's Medication Instructions Recorded promethazine-DM 6.25 mg-15 mg/5 mL 5 ml PO Q4-6H PRN cough #50 mL 09/15/20 oral syrup naproxen 500 mg tablet 500 mg PO TID PRN menstrual pain 03/27/21 #30 tabs nitroglycerin 0.4 % (w/w) rectal 1 inch OR BID #30 grams 08/20/21 ointment tranexamic acid 650 mg tablet 1,300 mg (2 x 650 mg) PO 3XD #30 04/16/23 tabs diclofenac sodium 1 % topical gel 2 g topical QID PRN Pain #100 grams 07/08/24 meloxicam 7.5 mg tablet 7.5 mg PO BID PRN Pain #20 tabs 07/08/24 albuterol sulfate 90 mcg/actuation 2 puff inhalation Q6H PRN 11/26/24 aerosol inhaler (Ventolin HFA) shortness of breath or wheezing #8.5 grams Allergies Allergy/AdvReac Type Severity Reaction Status Date / Time amoxicillin [AMOXICILLIN] AdvReac Mild Hives Verified 11/26/24 08:27 Sulfa (Sulfonamide AdvReac Mild Rash Verified 11/26/24 08:27 Antibiotics) [SULFA (SULFONAMIDE ANTIBIOTICS)] erythromycin base AdvReac Rash Verified 11/26/24 08:27 tetracycline AdvReac Rash Verified 11/26/24 08:27 Patient History Medical History 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 Fibroids, intramural Metabolic syndrome Severe dysmenorrhea Menorrhagia with regular cycle Anal fissure Morbid obesity with body mass index (BMI) of 50.0 to 59.9 in adult Depression Asthma Tobacco dependency Hypertension Morbid obesity with BMI of 45.0-49.9, adult Obstructive sleep apnea of adult (~08/2018) Snoring Surgical History Status post tubal ligation (07/01/15) Status post delivery History of breast augmentation Family History Father Age: 76 Hypertension Mother Age: 74 High cholesterol Social History marital status: unmarried,living together details: with Soham Valencia, in [place] number of children: 2 household members: significant other and children lives independently: Yes caregiver/support person: No housing: house occupational status: employed Smoking Status: Current every day smoker alcohol intake: former substance use type: does not use Smoking Status: Current every day smoker tobacco type: cigarettes and vaping alcohol intake frequency: 0-2 drinks per day Exam Narrative Exam Narrative: Alert oriented nontoxic in appearance she is diaphoretic Initial Vital Signs Initial Vital Signs: Vital Signs Pulse Rate 73 11/26/24 08:17 Blood Pressure 132/74 11/26/24 08:17 Pulse Oximetry 96 11/26/24 08:17 HENMT HENMT Other: Normocephalic and atraumatic oral mucosa is moist oropharynx is clear Neck Lymphatic: lymphadenopathy (No lymphadenopathy) and other (Neck is supple) Resp Other: Lungs are notable for mild expiratory wheezing with good air movement equal breath Cardio Other: Regular rhythm rate no murmur rub or gallop Neuro Other: Alert and oriented no focal deficits Course Orders Ordered: ED Orders 11/26/24 08:35 Chest [XR chest 2V] Stat CBC Auto Diff [Complete Blood Count AUTO DIFF] Stat CMP [Comprehensive Metabolic Panel] Stat Vital Signs Vital signs: Vital Signs - 8 hr 11/26/24 08:21 Temperature 98.8 F Pulse Rate 74 Respiratory Rate 16 Blood Pressure 132/74 Pulse Oximetry 96 Oxygen Delivery Method Room Air MDM - URI/Sore Throat Lab Data 11/26/24 08:45 11/26/24 08:45 Labs: Lab Results 11/26/24 11/26/24 Range/Units 08:16 08:45 WBC 4.1 L (4.5-11.0) X10^3/uL RBC 4.19 (4.0-5.2) X10^6/uL Hgb 13.2 (12.0-16.0) g/dL Hct 38.4 (36-46) % MCV 91.6 (80-100) fL MCH 31.4 (26-34) PG MCHC 34.3 (30-36) % RDW 14.5 (11.6-14.8) % Plt Count 156 (150-400) X10^3/uL Neut % (Auto) 68.5 (50-75) % Lymph % (Auto) 21.3 L (25-40) % [place] % (Auto) 8.7 (3-14) % Eos % (Auto) 0.1 L (2-4) % Baso % (Auto) 1.4 (0-2) % Neut # (Auto) 2800 (0340-8583) /uL Lymph # (Auto) 900 L (7157-6217) /uL [place] # (Auto) 400 (0-900) /uL Eos # (Auto) 0 (0-450) /uL Baso # (Auto) 100 (0-100) /uL Sodium 136 L (137-145) mmol/L Potassium 4.6 (3.4-5.1) mmol/L Chloride 101 (98-107) mmol/L Carbon Dioxide 28 (22-32) mmol/L BUN 11 (7-17) mg/dL Creatinine 0.54 (0.52-1.04) mg/dL Estimated GFR > 60 (>60) mL/min BUN/Creatinine Ratio 20.4 (6-22) Glucose 120 H (70-100) mg/dL Calcium 8.9 (8.4-10.2) mg/dL Total Bilirubin 0.5 (0.2-1.3) mg/dL AST 47 H (14-36) IU/L ALT 31 (<35) IU/L Alkaline Phosphatase 60 (38-126) U/L Total Protein 7.1 (6.3-8.2) g/dL Albumin 4.0 (3.5-5.0) g/dL Globulin 3.1 (1.7-4.1) g/dL Albumin/Globulin Ratio 1.3 (1.0-2.8) SARS-CoV-2 (PCR) Cancelled Influenza A (RT-PCR) Cancelled Influenza B (RT-PCR) Cancelled RSV (PCR) Cancelled Imaging Data Chest x-ray: My Impression: Independent review of chest x-ray, no cardiomegaly no heart failure no infiltrate Radiologist's Impression: [address] [address] XRay Report Signed Patient: Adelita Joseph MR#: [id number] : 1970 Acct:[id number] Age/Sex: 53 / F Date of Service: 11/26/24 Loc: ED Accession Number: [id number] Procedure: XR chest 2V Ordering Provider: Torres Petersen MD PROCEDURE: XR CHEST 2V INDICATIONS: cough TECHNIQUE: 2 views of the chest were acquired. COMPARISON: [facility], , XR CHEST 2V, 09/15/2020, 13:01. FINDINGS AND IMPRESSION: [id number] peribronchial thickening. This could represent viral infection/bronchitis. No airspace consolidation or pleural effusion. Heart size is normal and unchanged. Unremarkable osseous structures. Dictated by: Hari Swartz M.D. on 11/26/2024 at 8:56 Approved by: Hari Swartz M.D. on 11/26/2024 at 8:57 [facility] Narrative Medical decision making narrative: 53-year-old female with a febrile respiratory illness. She had been symptomatic for a week. She is not hypoxic or toxic appearing. Elected not to test for viral pathogens given her duration of symptoms and nontoxic appearance. Chest x-ray is negative for infiltrate. Recommended continue symptomatic care. Discharge Plan Departure Patient Disposition: Home Clinical Impression: Viral respiratory infection, Viral infection Activity Restrictions/Additional Instructions: Emergency department evaluation today is reassuring. I think you have a viral respiratory infection that is kind of run its course in the next few days. Continue with ibuprofen and Tylenol as needed for fevers. Rest and get adequate fluids. I sent a prescription for a new albuterol inhaler to your pharmacy, you can use this as needed. If having uncontrolled vomiting increasing shortness of breath chest pain or other acute symptoms recheck in the emergency department Prescriptions: New albuterol sulfate [Ventolin HFA] 90 mcg/actuation HFA aerosol inhaler 2 puff inhalation Q6H PRN (Reason: shortness of breath or wheezing) Qty: 8.5 0RF No Action tranexamic acid 650 mg tablet 1,300 mg PO 3XD Qty: 30 12RF metformin 500 mg tablet 500 mg PO BID atorvastatin [Lipitor] 40 mg tablet 40 mg PO BEDTIME naproxen 500 mg tablet 500 mg PO TID PRN (Reason: menstrual pain) Qty: 30 12RF Rx Instructions: Begin taking 1-2 prior to start of each period. nitroglycerin 0.4 % (w/w) ointment 1 inch OR BID Qty: 30 0RF metoprolol tartrate 100 mg tablet 1 tab PO QPM Patient Comments: TAKE 1 TABLET BY MOUTH ONCE A DAY FOR BLOOD PRESSURE CONTROL. citalopram 10 mg tablet 1 tab PO QPM Patient Comments: TAKE ONE BY MOUTH EVERY DAY IN ADDITION TO 20MG TABLET FOR A TOTAL OF30MG PER DAY. citalopram 20 mg tablet 1 tab PO QPM Patient Comments: TAKE ONE BY MOUTH EVERY DAY IN ADDITION TO 10MG TABLET FOR A TOTAL OF30MG DAILY albuterol sulfate [ProAir HFA] 90 mcg/actuation HFA aerosol inhaler 2 puff Inhalation Q4H PRN (Reason: Shortness Of Breath) Patient Comments: INHALE 2 PUFFS EVERY 4 HOURS NEEDED FOR SHORTNESS OF BREATH meloxicam 7.5 mg tablet 7.5 mg PO BID PRN (Reason: Pain) Qty: 20 0RF diclofenac sodium 1 % gel 2 g topical QID PRN (Reason: Pain) Qty: 100 0RF Rx Instructions: apply to single elbow, wrist or hand; for hand includes palm/fingers/back of hand promethazine-DM 6.25-15 mg/5 mL syrup 5 ml PO Q4-6H PRN (Reason: cough) Qty: 50 0RF (DME) Respironics Dreamstation CPAP Qty: 1 Dose Instruction: As directed Patient Comments: pressure: 12-16 cmH2O DME: [facility] Rx Instructions: As directed Referrals: Isaiah Yang MD [Primary Care Provider] - Stand Alone Forms: Patient Portal/API/Survey
[2024-11-26 08:56] LABS: Add Manual Diff / Slide Review NO; Basophils Absolute Auto 100 /uL (0-100); Basophils Percent Auto 1.4 % (0-2); Eosinophils Absolute Auto 0 /uL (0-450); Eosinophils Percent Auto 0.1 % (2-4); Hematocrit 38.4 % (36-46); Hemoglobin 13.2 g/dL (12.0-16.0); Lymphocytes Absolute Auto 900 /uL (1100-4500); Lymphocytes Percent Auto 21.3 % (25-40); Mean Corpuscular HGB Conc 34.3 % (30-36); Mean Corpuscular Hemoglobin 31.4 PG (26-34); Mean Corpuscular Volume 91.6 fL (80-100); Monocytes Absolute Auto 400 /uL (0-900); Monocytes Percent Auto 8.7 % (3-14); Neutrophils Absolute Auto 2800 /uL (1500-7000); Neutrophils Percent Auto 68.5 % (50-75); Platelet Count 156 X10^3/uL (150-400); Red Blood Cell Count 4.19 X10^6/uL (4.0-5.2); Red Cell Distribution Width 14.5 % (11.6-14.8); White Blood Cell Count 4.1 X10^3/uL (4.5-11.0)
[2024-11-26 09:00] VITALS: PULSE 68; O2SAT 95
[2024-11-26 09:10] LABS: Alanine Aminotransferase 31 IU/L (<35); Albumin Globulin Ratio 1.3 (1.0-2.8); Alkaline Phosphatase 60 U/L (38-126); Aspartate Aminotransferase 47 IU/L (14-36); BUN Creatinine Ratio 20.4 (6-22); Bilirubin Total 0.5 mg/dL (0.2-1.3); Blood Urea Nitrogen 11 mg/dL (7-17); Calcium 8.9 mg/dL (8.4-10.2); Carbon Dioxide 28 mmol/L (22-32); Chloride 101 mmol/L (98-107); Estimated Glomerular Filt Rate > 60 mL/min (>60); Globulin 3.1 g/dL (1.7-4.1); Glucose 120 mg/dL (70-100); HEMOLYSIS 19 (0-50); Potassium 4.6 mmol/L (3.4-5.1); Sodium 136 mmol/L (137-145); Total Protein 7.1 g/dL (6.3-8.2)
[2024-11-26 09:30] VITALS: PULSE 66; O2SAT 91
[2024-11-26 09:58] VITALS: BP 116/80; PULSE 70; RESP 16; O2SAT 99
== END 2024-11-26 09:52 | disposition home or self-care (01) ==
PROVIDERS: Emergency Provider Emergency Medicine; PCP Family Medicine
DX: J98.8 Other specified respiratory disorders (principal); R50.9 Fever, unspecified; R05.9 Cough, unspecified; R09.81 Nasal congestion; R19.7 Diarrhea, unspecified; F17.200 Nicotine dependence, unspecified, uncomplicated
CPT/HCPCS: 71046; 80053; 85025; 99281; 99284

== ENCOUNTER → 2025-04-30 14:01 | Outpatient (CLI) | payer OTHER, SELFPAY ==
--- NOTE | 2025-04-30 14:03 | DI.RAD.S_ITS ---
PROCEDURE: XR KNEE RT 3V INDICATIONS: Pain in right knee TECHNIQUE: 3 views of the knee were acquired. COMPARISON: None. FINDINGS: Bones: No fractures or dislocations. Moderate to severe medial and moderate lateral tibiofemoral and patellofemoral compartment narrowing with associated osteophytosis. No suspicious bony lesions. Soft tissues: No joint effusion. No suspicious soft tissue calcifications. IMPRESSION: KL grade 2 tricompartmental osteoarthritis acute bony abnormality or significant effusion. Without evidence of Dictated by: Heri Ngo M.D. on 04/30/2025 at 21:05 Approved by: Heri Ngo M.D. on 04/30/2025 at 21:11
== END ==
PROVIDERS: PCP Family Medicine; Referring Provider Family Medicine; Visit Provider Family Medicine
DX: M17.11 Unilateral primary osteoarthritis, right knee (principal); M25.561 Pain in right knee
CPT/HCPCS: 73562

== ENCOUNTER → 2025-07-17 12:00 | Outpatient (CLI) | payer OTHER, SELFPAY ==
--- NOTE | 2025-07-17 12:01 | DI.US.S_ITS ---
PROCEDURE: US PERIPH VENOUS LOW EXTREM RT INDICATIONS: CALF SWELLING TECHNIQUE: Real-time imaging, as well as color and pulse Doppler interrogation, were performed of the lower extremity deep veins from the inguinal ligament to the popliteal fossa, with documentation of the visualized calf veins. COMPARISON: None. FINDINGS: The common femoral, femoral, popliteal, and the visualized calf veins are normally compressible, and free of intraluminal thrombus. Color and pulse Doppler demonstrate normal phasic intraluminal flow. There is normal augmentation response to distal compression maneuver. Complex fluid collection is noted within medial popliteal fossa extending to mid calf region measures up to 18.2 x 7.9 x 3.2 cm in size. IMPRESSION: 1. No evidence of DVT in visualized right lower extremity veins. 2. Finding is suggestive of a large Washington's cyst as above. Dictated by: Collin Lynch M.D. on 07/17/2025 at 15:43 Approved by: Collin Lynch M.D. on 07/17/2025 at 15:46
== END ==
PROVIDERS: Family Provider Family Medicine; PCP Family Medicine; Referring Provider Orthopaedic Surgery Adult Reconstructive Orthopaedic Surgery; Visit Provider Orthopaedic Surgery Adult Reconstructive Orthopaedic Surgery
DX: M17.11 Unilateral primary osteoarthritis, right knee (principal); M79.89 Other specified soft tissue disorders
CPT/HCPCS: 93971

== ENCOUNTER → 2025-07-21 08:55 | Outpatient (CLI) | payer OTHER, SELFPAY ==
--- NOTE | 2025-07-21 09:19 | DI.MRI.S_ITS ---
PROCEDURE: MR KNEE RT WO CON INDICATIONS: Right knee mechanical symptoms and swelling, eval mensicus TECHNIQUE: Noncontrast sagittal PD fast spin echo and T2 fast spin echo with fat saturation, sagittal 3-D FLASH with fat saturation; coronal T1 spin echo and PD fast spin echo with fat saturation, and axial PD fast spin echo with fat saturation through the knee. COMPARISON: [facility], CR, XR KNEE RT 3V, 04/30/2025, 13:58. FINDINGS: Image quality: Excellent. Menisci: Medial extrusion of the medial meniscus. Linear vertically oriented high T2 signal intensity traverses the inner and middle thirds of the posterior horn medial meniscus common straightening superior and inferior articular surface extension, indicating vertical tearing. Linear horizontal high T2 signal intensity traverses the inner, middle, and peripheral thirds of the medial meniscal body and posterior horn, demonstrating superior articular surface extension, indicating horizontal tearing. Lateral meniscus is intact. Cruciate ligaments: The anterior and posterior cruciate ligaments appear intact. Medial structures: The medial collateral ligament appears intact and demonstrates mild surrounding T2 signal elevation. Visualized portions of the pes anserinus tendons appear normal. No abnormal bursal fluid. Lateral structures: The lateral collateral ligament demonstrates mild T2 signal elevation at the femoral origin. The long and short heads of the biceps femoris tendon appear intact. The popliteus tendon appears normal. Iliotibial band appears normal. Anterior structures: The quadriceps and patellar tendons appear intact. Patellar alignment is normal. No femoral trochlear dysplasia or ventral trochlear prominence. No edema in the infrapatellar fat pad. Bones and cartilage: No bone marrow contusions or fractures. Moderate ill- defined STIR signal elevation within the weight-bearing aspects of the medial femoral condyle and medial tibial plateau. Mild subchondral marrow edema and cyst formation within the lateral patellar apex and lateral patellar facet. Joint space: There is a moderate knee joint effusion and a small Washington's cyst. Normal appearing synovial plicae are incidentally noted. IMPRESSION: 1. Tricompartmental osteoarthritis with associated articular cartilage loss. 2. Complex tearing of the medial meniscus. 3. Knee joint effusion and Washington's cyst. 4. Low-grade lateral collateral ligament tear. Dictated by: Tomeka Eldridge M.D. on 07/23/2025 at 12:18 Approved by: Tomeka Eldridge M.D. on 07/23/2025 at 12:20
== END ==
PROVIDERS: Family Provider Family Medicine; PCP Family Medicine; Referring Provider Physician Assistant Surgical; Visit Provider Physician Assistant Surgical
DX: M23.91 Unspecified internal derangement of right knee (principal); M71.21 Synovial cyst of popliteal space [Baker], right knee; M17.11 Unilateral primary osteoarthritis, right knee; S83.231A Complex tear of medial meniscus, current injury, right knee, initial encounter; M25.461 Effusion, right knee; S83.421A Sprain of lateral collateral ligament of right knee, initial encounter
CPT/HCPCS: 73721

== ENCOUNTER 2025-07-31 08:15 | Outpatient (RCR) | payer OTHER, SELFPAY ==
--- NOTE | 2025-05-23 10:00 | PT.OPPOC ---
Physical, Occupational & Speech Therapy At [facility] Current Diagnoses Pain in unspecified knee (05/23/25) Visit Care Team Role Provider Type Isaiah Yang MD Family Provider Physician Primary Care Provider Specialty: Family Practice Address: [address] [place], [address] Email: [email or web address] Sis Browning PA-C Attending Provider Advanced General Handling Supervisor Referring Provider Specialty: Orthopedics Orthopedic Surgery Address: [address] [place], [address] Email: [email or web address] Plan Of Care PT OP: Lower Back/Lower Extremity Start: 05/23/25 09:06 Freq: Status: Active Protocol: Document 05/23/25 09:07 STOCKBROKING DEALER (Rec: 05/23/25 09:53 STOCKBROKING DEALER Laptop) Out-Patient Physical Therapy Visit Information Visit Information Visit Type Initial Evaluation Visit Start Time 09:07 Visit Stop Time 09:53 Visit Number 1 Number of SEO TEAM LEAD Visits 0 Progress Note Due 06/22/25 Current Condition History of Current Condition Onset Date 8 months ago Current Complaints R knee pain History of Current Pt reports gradual onset of aching to R knee ~8 months Condition ago that has progressively gotten worse and worse. She reports no injury but that weight has fluctuated recently. Things that make it feel better are ice, some heat, elevation, slightly bent position. Pain is just below knee cap and to medial knee. Pain is exacerbated with full extension of knee and sweeping motion of heel (demonstrates a side to side twisting motion). Has tried stretching her R knee but seems to make pain worse. 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 Has difficulty going down stairs and has to go slow, going up is not a problem. Lives in a [facility] with 8 stairs to deck outside without HR. Future Testing and R knee X-Ray 04/30/25: Treatments Planned FINDINGS: Bones: No fractures or dislocations. Moderate to severe medial and moderate lateral tibiofemoral and patellofemoral compartment narrowing with associated osteophytosis. No suspicious bony lesions. Soft tissues: No joint effusion. No suspicious soft tissue calcifications. IMPRESSION: KL grade 2 tricompartmental osteoarthritis acute bony abnormality or significant effusion. Without evidence of Treatment Goals Patient/Caregiver Pain free mobility Goals Patient Questionnaires Lower Extremity Functional Scale LEFS Score 38/80 LEFS Impairment 40 to 59% Impaired (Score 32-47) Balance Tests Single Limb Standing Single Limb- Right 9s Single Limb- Left 6s Manual Assessments Joint Mobility Assessment Joint Mobility Medial positioning of R patella Assessment OP Gait Assessment Comments Gait Comments antalgic gait pattern without AD, decreased WB to RLE, decreased full knee ext on heel strike Hip Strength Hip Manual Muscle Testing R Flexion (L2) 4 Good Extension (S1) 4+ Good+ Abduction 4+ Good+ Comments Prone heel to buttock: 8.5 Prone hip IR: 25 degrees Prone hip ER: 30 degrees 90/90: 170/180 degrees Glute max flexibility: WNL via SKTC Glute med flexibility: restricted with SKTOC Knee Strength Knee Manual Muscle Testing R Flexion (S2) 4+ Good+ Extension (L3) 4+ Good+ Comments Knee ext: 3 degrees Knee flex: 115 degrees Ankle/Foot Strength Ankle and Foot Manual Muscle Testing R Dorsiflexion (L4) 5 Normal Therapeutic Exercises Supine Exercises SAQ Side right Equipment Used towel roll Reps/Minutes 10x2 Comments pain to L knee improving with reps, added to HEP with HO Sidelying Exercises Clamshells Side bilateral Reps/Minutes 10x2 Comments VC to prevent hip roll back, added to HEP with HO Physical Therapy Assessment Rehab Potential Rehabilitation Excellent Potential Evaluation Complexity Number of Personal 1-2 Factors/ Comorbidities Number of Body 1-2 Systems Impaired Clinical Stable Presentation at Evaluation Impairments Impairments Activity Tolerance,Balance,Functional Activities, Functional Mobility,Gait,Pain,ROM,Soft Tissue Mobility, Strength Goals 4 Impairment squatting Impairment painful sit>stands, R knee PROM 3-115 degrees Short Term Goal (STG Pt will demonstrate R knee PROM 0-120 degrees in order ) to improve functional mobility. STG Duration 07/04/25 Skilled Nursing Goal (LTG) Pt will demonstrate x10 consecutive squats from knees at 90 degree angle without compensation with pain no greater than 1/10 in order to improve function. LTG Duration 08/15/25 3 Impairment walking endurance Impairment Normally walks 1-2 miles/day outside on uneven ground, unable to do this currently d/t R knee pain Skilled Nursing Goal (LTG) Pt will report amb 2 miles outside on even ground without AD without pain in order to improve function. LTG Duration 08/15/25 2 Impairment Stairs Impairment Painful and difficult descending stairs, has 8 stairs with 1 HR to deck R SLS 9s L SLS 6s Short Term Goal (STG Pt will improve balance vs B SLS to 15s on even surface ) in order to improve functional mobility. STG Duration 07/04/25 Mine Analyst Goal (LTG) Pt will ascend and descend 8x6 stairs with reciprocal pattern without HR with normal pattern without pain in order to improve function. LTG Duration 08/15/25 1 Impairment LEFS Impairment On eval: 38/80 Mine Analyst Goal (LTG) Pt will score no less than 72/80 on LEFS in order to improve functional mobility. LTG Duration 08/15/25 Assessment Summary Assessment Pt presents to PT with referral for moderate Right knee osteoarthritis. Pt presents with impaired gait pattern with decreased WB to RLE, decreased balance via B SLS, decreased patella glides with medial positioning, decreased knee PROM of ext and flex, minimally decreased hamstring flexibility, moderately decreased glute med, quad, and hip ER/IR flexibility, minimally decreased R hip and knee strength, especially R hip flexors. Pt will highly benefit from skilled PT intervention to address deficits with focus on RLE muscle flexibility and strengthening as well as balance in order to improve functional mobility. Physical Therapy Plan Frequency and Duration Frequency of 2x/Week Treatment Duration of 12 treatment (weeks) Plan of Care Start 05/23/25 Plan of Care End 08/15/25 Date Therapeutic Interventions Therapeutic Balance Training,Gait Training,Home Exercise Program, Interventions Joint Mobilizations,Manual Therapy,Neuromuscular Re- education,Orthotic/Prosthetic Management,Patient/ Caregiver Education,Self-Care/Home Management,Soft Tissue Mobilization,Taping,Therapeutic Activities, Therapeutic Exercises Modalities Cold Pack/Ice Massage,Electric Stimulation,Hot Packs, Iontophoresis,Traction- Mechanical,Ultrasound Next Visit Focus/Plan Next Note Type Treatment Note Next Visit Plan Add to HEP: R quad stretch, R gastroc and soleus stretch, R HS stretch, R HF stretch, R glute exercise Plan of Care Dates Plan of Care Start Date 05/23/25 Plan of Care End Date 08/15/25 Electronically Signed by: Amanda Miguel, PT 05/25/25 0805 If you are in agreement with this Plan of Care, please return a signed and dated copy. I have reviewed this Plan of Care and certify that the skilled therapy services above are required to meet the patient?s needs. Physician Signature Date Printed Name and Credentials Clinical Instructor Signature Printed Name and Credentials
--- NOTE | 2025-06-01 12:20 | PT.OTN ---
Current Diagnoses Pain in unspecified knee (06/01/25) Physical Therapy Treatment Note PT OP: Lower Back/Lower Extremity Start: 05/23/25 09:06 Freq: Status: Active Protocol: Document 06/01/25 09:02 AB (Rec: 06/01/25 09:49 AB [id number]) Out-Patient Physical Therapy Visit Information Visit Information Visit Type Treatment Note Visit Note Access Code [email or web address] Visit Start Time 09:04 Visit Stop Time 09:46 Visit Number 2 Number of SUPERMARKET MANAGER Visits 1 Progress Note Due 06/22/25 OP-PT Subjective Patient Comments Patient Comments Patient ambulates into session with antalgic pattern, 3 / ambulating without device. Patient reports this has been a hard week. Lacking 6 deg extension to 117 deg flexion start of session. Therapeutic Exercises Supine Exercises knee flexion Supine Exercise Name feet on wall to dec swelling AROM knee flexion Reps/Minutes X 2 min Comments verbal cues for positioning and to slide feet up and down wall hamstring stretch Supine Exercise Name HEP Side left Reps/Minutes 60 sec X 2 Comments verbal and tacitle cues SAQ Side right Equipment Used foam roller Reps/Minutes 10x2 Comments X 10 post each HS stretch Standing Exercises sit to stand Standing Exercise without UE use Name Reps/Minutes X 3 Comments Pt ed mech sit to stand and self tactile cues for hip hinge glute med isometric Standing Exercise HEP Name Side bilateral Reps/Minutes 60 sec Comments verbal and visual cues calf stretches Standing Exercise Gastroc and soleus at wall HEP Name Side right Reps/Minutes 60 sec X 2 each Comments verbal and visual cues Therapeutic Activity Therapeutic Activity stairs Comments 4 six inch stairs with bilateral rail use reciprocal pattern X 2 Verbal and visual cues for less quad dom pattern Manual Therapy Treatment Consent Patient gave verbal Yes consent for manual treatment Soft Tissue Mobilization L knee Body Location quad and HS and for swelling Mobilization Type Cross-Friction,Other Intensity/Depth Moderate Body Position Hooklying Physical Therapy Assessment Goals 4 Impairment squatting Impairment painful sit>stands, R knee PROM 3-115 degrees Short Term Goal (STG Pt will demonstrate R knee PROM 0-120 degrees in order ) to improve functional mobility. STG Duration 07/04/25 Kettle Operator Head Goal (LTG) Pt will demonstrate x10 consecutive squats from knees at 90 degree angle without compensation with pain no greater than 1/10 in order to improve function. LTG Duration 08/15/25 3 Impairment walking endurance Impairment Normally walks 1-2 miles/day outside on uneven ground, unable to do this currently d/t R knee pain [facility] Goal (LTG) Pt will report amb 2 miles outside on even ground without AD without pain in order to improve function. LTG Duration 08/15/25 2 Impairment Stairs Impairment Painful and difficult descending stairs, has 8 stairs with 1 HR to deck R SLS 9s L SLS 6s Short Term Goal (STG Pt will improve balance vs B SLS to 15s on even surface ) in order to improve functional mobility. STG Duration 07/04/25 [facility] Goal (LTG) Pt will ascend and descend 8x6 stairs with reciprocal pattern without HR with normal pattern without pain in order to improve function. LTG Duration 08/15/25 1 Impairment LEFS Impairment On eval: 38/80 Kettle Operator Head Goal (LTG) Pt will score no less than 72/80 on LEFS in order to improve functional mobility. LTG Duration 08/15/25 Assessment Summary Assessment Patient ambulates out of session with a less quad dominant pattern reports having less pain end of session R knee Physical Therapy Plan Frequency and Duration Frequency of 2x/Week Treatment Duration of 12 treatment (weeks) Plan of Care Start 05/23/25 Date Plan of Care End 08/15/25 Date Next Visit Focus/Plan Next Note Type Treatment Note Next Visit Plan Add to HEP: R quad stretch, R gastroc and soleus stretch, R HS stretch, R HF stretch, R glute exercise
--- NOTE | 2025-06-07 13:02 | PT.OTN ---
Current Diagnoses Pain in unspecified knee (06/07/25) Physical Therapy Treatment Note PT OP: Lower Back/Lower Extremity Start: 05/23/25 09:06 Freq: Status: Active Protocol: Document 06/07/25 09:09 BAKERY TEAM MEMBER (Rec: 06/07/25 09:52 BAKERY TEAM MEMBER Laptop) Out-Patient Physical Therapy Visit Information Visit Information Visit Type Treatment Note Visit Start Time 09:07 Visit Stop Time 09:48 Visit Number 3 Number of MAINTENANCE MACHINE REPAIRER Visits 0 Progress Note Due 06/22/25 OP-PT Subjective Patient Comments Patient Comments Pt reports 2/10 to R knee. Pt reports very positive response after last session and was able to do some yard work over the weekend which she has not been able to tolerate since injury. Pt reports she especially likes standing glute med isometric exercise and it makes her whole body feel better. Therapeutic Exercises Supine Exercises Foam roll Supine Exercise Name HS Side right Equipment Used full foam roller Reps/Minutes 2 mins Comments positive results SLR Side bilateral Reps/Minutes x10 Comments without pain Bridges Side bilateral Reps/Minutes 10x2 Comments VC for TA activation and push through heels for HS activation SAQ Supine Exercise Name ER of foot for VMO Side right Equipment Used bolster Reps/Minutes x10 Comments slight stretch feeling at medial knee but no pain Prone Exercises HS curls Side right Reps/Minutes x10 Standing Exercises HS stretch Standing Exercise on 6 stair Name Side right Reps/Minutes 1 min Comments IR to target lateral HS Other Exercises HEP review Other Exercise Name Pt demonstrated all HEP exercises/stretches given at last session w/o VC Manual Therapy Treatment Consent Patient gave verbal Yes consent for manual treatment Soft Tissue Mobilization post leg Body Location R HS Mobilization Type Rolling Intensity/Depth Moderate Body Position Sidelying Comments Significant tissue restrictions throughout HS, especially proximal HS and lateral HS Physical Therapy Assessment Goals 4 Impairment squatting Impairment painful sit>stands, R knee PROM 3-115 degrees Short Term Goal (STG Pt will demonstrate R knee PROM 0-120 degrees in order ) to improve functional mobility. STG Duration 07/04/25 Tree Fruit And Nut Farming Supervisor Goal (LTG) Pt will demonstrate x10 consecutive squats from knees at 90 degree angle without compensation with pain no greater than 1/10 in order to improve function. LTG Duration 08/15/25 3 Impairment walking endurance Impairment Normally walks 1-2 miles/day outside on uneven ground, unable to do this currently d/t R knee pain [facility] Goal (LTG) Pt will report amb 2 miles outside on even ground without AD without pain in order to improve function. LTG Duration 08/15/25 2 Impairment Stairs Impairment Painful and difficult descending stairs, has 8 stairs with 1 HR to deck R SLS 9s L SLS 6s Short Term Goal (STG Pt will improve balance vs B SLS to 15s on even surface ) in order to improve functional mobility. STG Duration 07/04/25 [facility] Goal (LTG) Pt will ascend and descend 8x6 stairs with reciprocal pattern without HR with normal pattern without pain in order to improve function. LTG Duration 08/15/25 1 Impairment LEFS Impairment On eval: 38/80 Tree Fruit And Nut Farming Supervisor Goal (LTG) Pt will score no less than 72/80 on LEFS in order to improve functional mobility. LTG Duration 08/15/25 Assessment Summary Assessment Pt with significant tightness to R HS this session and tolerated STM, FR, and stretching in standing followed up with gentle HS curls. Reports slight soreness after session. Did not add to HEP this session for improved comfort and consistency before adding more. Physical Therapy Plan Frequency and Duration Frequency of 2x/Week Treatment Duration of 12 treatment (weeks) Plan of Care Start 05/23/25 Date Plan of Care End 08/15/25 Date Next Visit Focus/Plan Next Note Type Treatment Note Next Visit Plan TA exercises, mini squats, shuttle recovery, taping
--- NOTE | 2025-06-12 20:56 | PT.OTN ---
Current Diagnoses Pain in unspecified knee (06/12/25) Physical Therapy Treatment Note PT OP: Lower Back/Lower Extremity Start: 05/23/25 09:06 Freq: Status: Active Protocol: Document 06/12/25 07:32 SPIRAL WEAVER (Rec: 06/12/25 08:22 SPIRAL WEAVER Laptop) Out-Patient Physical Therapy Visit Information Visit Information Visit Type Treatment Note Visit Start Time 07:34 Visit Stop Time 08:18 Visit Number 4 Number of PATIENT SERVICE REPRESENTATIVE Visits 0 Progress Note Due 06/22/25 OP-PT Subjective Patient Comments Patient Comments Pt reports she has been using her massage gun on R quad and hamstring and is feeling better, reports current pain 1/10 to R medial knee with less limping. Gym Equipment Shuttle Recovery BLE Details 1. pain w/ ext 2. L3 TB at knees w/ pain 3. ball squeeze no pain Resistance 50# Shuttle Recovery Stable Platform Reps/Time x15 each Therapeutic Exercises Supine Exercises Piriformis stretch Supine Exercise Name Figure 4 Side bilateral Reps/Minutes 1 min each Comments seated version added to HEP TA Supine Exercise Name 1. PPT 2. PPT hold with 3 inhale/exhale Reps/Minutes x10 each Comments min VC Sitting Exercises FR Sitting Exercise rolling pin to R quad and ITB Name Side right Reps/Minutes 5 min Comments Added to HEP with HO Piriformis stretch Sitting Exercise Figure 4 stretch Name Side bilateral Reps/Minutes 1 min each Comments Added to HEP with HO Manual Therapy Treatment Consent Patient gave verbal Yes consent for manual treatment Soft Tissue Mobilization ant leg Body Location R quad and ITB Mobilization Type Rolling Intensity/Depth Moderate Body Position hooklying, sidelying Comments minimal tightness to R quad, significant tightness to ITB Physical Therapy Assessment Goals 4 Impairment squatting Impairment painful sit>stands, R knee PROM 3-115 degrees Short Term Goal (STG Pt will demonstrate R knee PROM 0-120 degrees in order ) to improve functional mobility. STG Duration 07/04/25 Retirement Goal (LTG) Pt will demonstrate x10 consecutive squats from knees at 90 degree angle without compensation with pain no greater than 1/10 in order to improve function. LTG Duration 08/15/25 3 Impairment walking endurance Impairment Normally walks 1-2 miles/day outside on uneven ground, unable to do this currently d/t R knee pain Retirement Goal (LTG) Pt will report amb 2 miles outside on even ground without AD without pain in order to improve function. LTG Duration 08/15/25 2 Impairment Stairs Impairment Painful and difficult descending stairs, has 8 stairs with 1 HR to deck R SLS 9s L SLS 6s Short Term Goal (STG Pt will improve balance vs B SLS to 15s on even surface ) in order to improve functional mobility. STG Duration 07/04/25 Retirement Goal (LTG) Pt will ascend and descend 8x6 stairs with reciprocal pattern without HR with normal pattern without pain in order to improve function. LTG Duration 08/15/25 1 Impairment LEFS Impairment On eval: 38/80 Ski Patrol Officer Goal (LTG) Pt will score no less than 72/80 on LEFS in order to improve functional mobility. LTG Duration 08/15/25 Assessment Summary Assessment Pt with reduced tightness to R HS but with increased tightness to ITB, tolerated FR with rolling pin well and added to HEP with HO. Pt with R knee upon full R knee extension, especially during squats on shuttle recovery, worsened with glute med activation with TB around knees and improved with activation of B hip add with ball squeeze during squats. Physical Therapy Plan Frequency and Duration Frequency of 2x/Week Treatment Duration of 12 treatment (weeks) Plan of Care Start 05/23/25 Date Plan of Care End 08/15/25 Date Next Visit Focus/Plan Next Note Type Treatment Note Next Visit Plan trial cupping to R hip/ITB, shuttle recovery with ball squeeze, taping, advance TA exercises
--- NOTE | 2025-06-15 10:51 | PT.OTN ---
Current Diagnoses Pain in unspecified knee (06/15/25) Physical Therapy Treatment Note PT OP: Lower Back/Lower Extremity Start: 05/23/25 09:06 Freq: Status: Active Protocol: Document 06/15/25 07:31 HIGH PRESSURE BOILER OPERATOR (Rec: 06/15/25 08:21 HIGH PRESSURE BOILER OPERATOR Laptop) Out-Patient Physical Therapy Visit Information Visit Information Visit Type Treatment Note Visit Start Time 07:31 Visit Stop Time 08:19 Visit Number 5 Number of AUTOMOTIVE ELECTRICAL FITTER Visits 0 Progress Note Due 06/22/25 OP-PT Subjective Patient Comments Patient Comments Pt reports her pain is a 1/10 to R medial inferior patella. She did not take her meloxicam NSAID yesterday and reports she could feel it. Therapeutic Exercises Supine Exercises HF stretch Supine Exercise Name modified Teofilo over edge of bed Side right Reps/Minutes 1 min x2 Comments Added to HEP with HO Bridges Side bilateral Reps/Minutes x10 Comments VC for TA activation and push through heels for HS activation SAQ Supine Exercise Name ER of foot for VMO Side right Equipment Used bolster Reps/Minutes 10x2 Comments after IASTM to vastus lateralis, pain free, added to HEP with HO Prone Exercises HS curls Side right Reps/Minutes x10 Comments after STM, pain free Sitting Exercises HS stretch Sitting Exercise single leg long sitting, straight and turned away for Name medial stretch Side right Reps/Minutes 1 min x2 Comments Added to HEP with HO Manual Therapy Treatment Consent Patient gave verbal Yes consent for manual treatment Soft Tissue Mobilization ant leg Body Location R quad with focus on vastus lateralis, R HS Mobilization Type Instrument Assisted,Myofascial Release,Rolling Intensity/Depth superficial/moderate Body Position hooklying, prone Comments cupping and IASTM-tightness to R lateral quad and R medial HS, good response with decreased pain and tightness Physical Therapy Assessment Goals 4 Impairment squatting Impairment painful sit>stands, R knee PROM 3-115 degrees Short Term Goal (STG Pt will demonstrate R knee PROM 0-120 degrees in order ) to improve functional mobility. STG Duration 07/04/25 Sliver Machine Operator Goal (LTG) Pt will demonstrate x10 consecutive squats from knees at 90 degree angle without compensation with pain no greater than 1/10 in order to improve function. LTG Duration 08/15/25 3 Impairment walking endurance Impairment Normally walks 1-2 miles/day outside on uneven ground, unable to do this currently d/t R knee pain Assisted Goal (LTG) Pt will report amb 2 miles outside on even ground without AD without pain in order to improve function. LTG Duration 08/15/25 2 Impairment Stairs Impairment Painful and difficult descending stairs, has 8 stairs with 1 HR to deck R SLS 9s L SLS 6s Short Term Goal (STG Pt will improve balance vs B SLS to 15s on even surface ) in order to improve functional mobility. STG Duration 07/04/25 Assisted Goal (LTG) Pt will ascend and descend 8x6 stairs with reciprocal pattern without HR with normal pattern without pain in order to improve function. LTG Duration 08/15/25 1 Impairment LEFS Impairment On eval: 38/80 Assisted Goal (LTG) Pt will score no less than 72/80 on LEFS in order to improve functional mobility. LTG Duration 08/15/25 Assessment Summary Assessment Pt with good response to cupping and IASTM to R hamstring and quad with focus on medial HS and lateral quad areas of increased tightness. Pt responded well to modified teofilo stretch and added to HEP with HS stretch in long sitting and SAQs in ER. Pt still with pain to inferior R knee, consider taping for support. Physical Therapy Plan Frequency and Duration Frequency of 2x/Week Treatment Duration of 12 treatment (weeks) Plan of Care Start 05/23/25 Date Plan of Care End 08/15/25 Date Next Visit Focus/Plan Next Note Type Treatment Note Next Visit Plan taping of R knee, shuttle recovery with ball squeeze, advance TA exercises, IASTM to medial HS and vastus lateralis with strengthening of VMO
--- NOTE | 2025-06-19 08:16 | PT.OTN ---
Current Diagnoses Pain in unspecified knee (06/19/25) Physical Therapy Treatment Note PT OP: Lower Back/Lower Extremity Start: 05/23/25 09:06 Freq: Status: Active Protocol: Document 06/19/25 07:30 SP (Rec: 06/19/25 08:22 SP [id number]) Out-Patient Physical Therapy Visit Information Visit Information Visit Type Treatment Note Visit Note BABRARA Anna observed tx with patient permission and while under direct supervision of MATT Pendleton. Visit Start Time 07:30 Visit Stop Time 08:16 Visit Number 6 Number of MANAGER OF ADMINISTRATION Visits 1 Progress Note Due 06/22/25 OP-PT Subjective Patient Comments Patient Comments Pt reports first step getting up lateral R knee pain and ache/soreness in knee joint when wakes. up. Therapeutic Exercises Supine Exercises SLR Supine Exercise Name hip ER approx 2 o'clock- for VMO engagment Side bilateral Resistance AROM Reps/Minutes 2x15 Comments instructed addition of hip ER approx 2 o'clock for progression Bridges Side bilateral Resistance L3 band at knees Reps/Minutes 15 second hold at feel range comfortable x 5 Comments cues for foot alignment R base 1st MTP on table, knee alignment with foreft Manual Therapy Treatment Consent Patient gave verbal Yes consent for manual treatment Soft Tissue Mobilization L knee Body Location R knee: lateral distal ITB and VL Mobilization Type Cross-Friction,Instrument Assisted Intensity/Depth Moderate Body Position Hooklying Comments Tooling to distal tendons, no pain Joint Mobilizations L Talocrual Joint R ankle Direction PA Grade II L tibfib Joint R knee: prox and distal Direction P<>A Grade II L tibfemoral Joint R knee Direction P<>A Grade II Comments with various flexion range patellofemoral Joint R Direction med/lat/sup/inf Grade II Body Position Supine Comments no pain, patella tends to track laterally Taping Ktapiing Body Location R (patella tends to lateral glide causing discomfort subpatella) Treatment Focus medial glide support Skin Inspection normal color and skin integrity intact Comments instructed to remove if any adverse affects and if ok and support alignment/pain reduction can keep on 2-4 days with ability to wear in shower. Self-Care/Home Management Treatment Education Patient Education Joint Protection,Pain Management,Safety Other Education education of self STMs use of gentle tool cross friction to distal ITB for tension reduction in lateral knee. Physical Therapy Assessment Goals 4 Impairment squatting Impairment painful sit>stands, R knee PROM 3-115 degrees Short Term Goal (STG Pt will demonstrate R knee PROM 0-120 degrees in order ) to improve functional mobility. STG Duration 07/04/25 [facility] Goal (LTG) Pt will demonstrate x10 consecutive squats from knees at 90 degree angle without compensation with pain no greater than 1/10 in order to improve function. LTG Duration 08/15/25 3 Impairment walking endurance Impairment Normally walks 1-2 miles/day outside on uneven ground, unable to do this currently d/t R knee pain Clinical Nursing Intern Goal (LTG) Pt will report amb 2 miles outside on even ground without AD without pain in order to improve function. LTG Duration 08/15/25 2 Impairment Stairs Impairment Painful and difficult descending stairs, has 8 stairs with 1 HR to deck R SLS 9s L SLS 6s Short Term Goal (STG Pt will improve balance vs B SLS to 15s on even surface ) in order to improve functional mobility. STG Duration 07/04/25 Mcc Goal (LTG) Pt will ascend and descend 8x6 stairs with reciprocal pattern without HR with normal pattern without pain in order to improve function. LTG Duration 08/15/25 1 Impairment LEFS Impairment On eval: 38/80 Mcc Goal (LTG) Pt will score no less than 72/80 on LEFS in order to improve functional mobility. LTG Duration 08/15/25 Assessment Summary Assessment Pt improved increased R distal ITB mobility and decreased tension after gentle tool cross friction with education self application home carryover if finds beneficial. Provided Ktaping to R lateral patella for medial glide midline stabilization and reported little decreased in discomfort of R knee flexion. Instruction up of modified SLR of added slight hip ER forefoot pointing to 2 o'clock to provide VMO engagement progress quad strengthening, no adverse affects, cued TKE awareness ascend slower descend lowering, improved performace and hoping will support better midline patellar glide and reduction in reports of pain. Physical Therapy Plan Frequency and Duration Frequency of 2x/Week Treatment Duration of 12 treatment (weeks) Plan of Care Start 05/23/25 Date Plan of Care End 08/15/25 Date Therapeutic Interventions Therapeutic Balance Training,Gait Training,Home Exercise Program, Interventions Joint Mobilizations,Manual Therapy,Neuromuscular Re- education,Orthotic/Prosthetic Management,Patient/ Caregiver Education,Self-Care/Home Management,Soft Tissue Mobilization,Taping,Therapeutic Activities, Therapeutic Exercises Modalities Cold Pack/Ice Massage,Electric Stimulation,Hot Packs, Iontophoresis,Traction- Mechanical,Ultrasound Next Visit Focus/Plan Next Note Type Treatment Note Next Visit Plan REcheck response to ktaping of R knee medial glide, review shuttle recovery with ball squeeze, advance TA exercises as tolerance, IASTM to medial HS and vastus lateralis with strengthening of VMO
--- NOTE | 2025-06-21 16:28 | PT.OPPOC ---
Physical, Occupational & Speech Therapy At [facility] Current Diagnoses Pain in unspecified knee (06/21/25) Visit Care Team Role Provider Type Isaiah Yang MD Family Provider Physician Primary Care Provider Specialty: Family Practice Address: [address] [place], [address] Email: [email or web address] Sis Browning PA-C Attending Provider Advanced Anesthesiologists' Assistant Referring Provider Specialty: Orthopedics Orthopedic Surgery Address: [address] [place], [address] Email: [email or web address] Plan Of Care PT OP: Lower Back/Lower Extremity Start: 05/23/25 09:06 Freq: Status: Active Protocol: Document 06/21/25 10:34 [facility] (Rec: 06/21/25 11:31 [facility] [id number]) Out-Patient Physical Therapy Visit Information Visit Information Visit Type Progress Note Visit Start Time 10:45 Visit Stop Time 11:30 Visit Number 7 Number of DESIGN AGENT Visits 0 OP-PT Subjective Patient Comments Patient Comments pt reports the tape has been amazing for her knee and she notes she does not have as much of the joint pain with the tape on Patient Reported Improving Progress Therapeutic Exercises Supine Exercises quad squeeze Reps/Minutes 5 second hold x 10 reps to activate the VMO SLR Supine Exercise Name hip ER approx 2 o'clock- for VMO engagment Side bilateral Resistance AROM Reps/Minutes 2x15 Comments instructed addition of hip ER approx 2 o'clock for progression Bridges Side bilateral Resistance L3 band at knees Reps/Minutes 15 second hold at feel range comfortable x 5 Comments cues for foot alignment R base 1st MTP on table, knee alignment with foreft hamstring stretch Supine Exercise Name HEP, towel behind knee, active knee flexion and extension Side left Reps/Minutes 60 sec X 2 Comments verbal and tacitle cues SAQ Supine Exercise Name ER of foot for VMO Side right Equipment Used bolster Reps/Minutes 10x2 Comments after IASTM to vastus lateralis, pain free, added to HEP with HO Sitting Exercises HS stretch Sitting Exercise single leg long sitting, straight and turned away for Name medial stretch Side right Reps/Minutes 1 min x2 Comments Added to HEP with HO Piriformis stretch Sitting Exercise Figure 4 stretch Name Side bilateral Reps/Minutes 1 min each Comments Added to HEP with HO Standing Exercises standing single leg balance Standing Exercise added to HEP to work towards goals of stairs Name Side bilateral Reps/Minutes 3 reps each side Physical Therapy Assessment Goals 4 Impairment squatting Impairment painful sit>stands, R knee PROM 3-115 degrees Short Term Goal (STG Pt will demonstrate R knee PROM 0-120 degrees in order ) to improve functional mobility. As of 06/21/25 goal met for flexion to 125 degrees , extension still limited to 3 degrees AROM following manual stretching I am able to get her to full extension STG Duration 07/04/25 Assisted Goal (LTG) Pt will demonstrate x10 consecutive squats from knees at 90 degree angle without compensation with pain no greater than 1/10 in order to improve function. goal not yet met LTG Duration 08/15/25 3 Impairment walking endurance Impairment Normally walks 1-2 miles/day outside on uneven ground, unable to do this currently d/t R knee pain Assisted Goal (LTG) Pt will report amb 2 miles outside on even ground without AD without pain in order to improve function. As of 06/21/25 pt reports it is easier to walk but she feels uneasy on hills and uneven ground still but its getting better LTG Duration 08/15/25 2 Impairment Stairs Impairment Painful and difficult descending stairs, has 8 stairs with 1 HR to deck R SLS 9s L SLS 6s Short Term Goal (STG Pt will improve balance vs B SLS to 15s on even surface ) in order to improve functional mobility. As of 06/21/25 this is Improved R SLS 11sec L SLS 10 sec STG Duration 07/04/25 Lead Auditor Goal (LTG) Pt will ascend and descend 8x6 stairs with reciprocal pattern without HR with normal pattern without pain in order to improve function. This is slowly getting better now that she is able to tilt at her pelvis now, she is still walking step to step LTG Duration 08/15/25 1 Impairment LEFS Impairment On eval: 38/80 Lead Auditor Goal (LTG) Pt will score no less than 72/80 on LEFS in order to improve functional mobility. Good progress LTG Duration 08/15/25 Assessment Summary Assessment Adelita is progressing well with PT and has really felt the kinesiotape has helped her. Her flexion ROM has improved to 125 degrees. She is tight in her Hamstrings and calf and this does limit her AROM extension to 3 degrees. I am able to get her into full extension following manual stretching. She is demonstrating improved quad activation. Stairs are still step to step but feel better and she is starting to feel more confident with walking now. She would benefit from progressing her single to balance exercises and move into more dynamic exercises including squats and would benefit from continued PT Physical Therapy Plan Frequency and Duration Frequency of 2x/Week Treatment Duration of 12 treatment (weeks) Plan of Care Start 05/23/25 Date Plan of Care End 08/15/25 Date Next Visit Focus/Plan Next Note Type Treatment Note Next Visit Plan retape the knee with kinesiotape, continue working on full knee extension, single leg balance exercise to help her with ascending and descending stairs and start working on sit-stand exercise, continue with knee stabilization exercises Plan of Care Dates Plan of Care Start Date 05/23/25 Plan of Care End Date 08/15/25 Electronically Signed by: Arabella Reynolds, PT 06/21/25 1798 If you are in agreement with this Plan of Care, please return a signed and dated copy. I have reviewed this Plan of Care and certify that the skilled therapy services above are required to meet the patient?s needs. Physician Signature Date Printed Name and Credentials Clinical Instructor Signature Printed Name and Credentials
--- NOTE | 2025-06-26 07:43 | PT-OP ANOTE ---
Pt did not show for appt today, when called her she didn't realize had an appt today, only knew about Th. She did say she had to make updates to her appts list after seeing new primary PT last tx and was looking off last appt sheet of which today's appt was on it. POST FRAMER reviewed appts scheduled and discussed throw away the old appt schedule. She confirmed all upcoming appts. She is aware could get a NS fee for missed appt today. POST FRAMER offered another opening this week Wed or Wed at 9, pt declined is busy.
--- NOTE | 2025-06-28 08:18 | PT.OTN ---
Current Diagnoses Pain in unspecified knee (06/28/25) Physical Therapy Treatment Note PT OP: Lower Back/Lower Extremity Start: 05/23/25 09:06 Freq: Status: Active Protocol: Document 06/28/25 07:34 SP (Rec: 06/28/25 09:04 SP [id number]) Out-Patient Physical Therapy Visit Information Visit Information Visit Type Treatment Note Visit Note BARBARA Anna assisted with Venezuelan Stim co-contract with SAQ and Ktaping for patella stability with patient permission and under direct instruction of MATT Pendleton. Visit Start Time 07:34 Visit Stop Time 08:18 Visit Number 8 Number of WATER ANALYST Visits 1 Progress Note Due 07/21/25 OP-PT Subjective Patient Comments Patient Comments Pt reports R knee feels very unstable since K tape came off, knee cap was moving to side again. Pt tried self taping and was not able to do effectively. Pt reports has had difficulty with normal work and activities, works in [employer] work. Therapeutic Exercises Supine Exercises quad squeeze Supine Exercise Name SAQ with Venezuelan stim Reps/Minutes 10 second hold x 10 reps Comments trialed lower leg ER but causes knee pain into ext, maddi neutral leg align Standing Exercises Lateral Step Down Standing Exercise Added to HEP (declined HO) Name Side bilateral Equipment Used rail support, 6 step Reps/Minutes 10 reps each side Comments cued knee alignment with midfoot, slow eccentric control step down- no pn Dynamic calf raises Standing Exercise 3 way ankle- good feedback response calf tension Name reduction (declined HO) Side bilateral Equipment Used heels off step, rail support Reps/Minutes 5-10 reps each position Comments cued slow eccentric control, pnfree range standing single leg balance Standing Exercise review Name Side bilateral Equipment Used PRN rail counter Comments cued rhomboid and TA over BETTY SLS Other Exercises Self STM Other Exercise Name Ball rolling under calf Side right Resistance BW Equipment Used Tennis ball vs racquetball vs lacrosse ball Reps/Minutes 5 min Comments Pt in long sit on mat, preferred tennis ball Manual Therapy Treatment Consent Patient gave verbal Yes consent for manual treatment Soft Tissue Mobilization post leg Body Location R gastroc and soleus Mobilization Type Cross-Friction,Instrument Assisted,Rolling,Sustained Pressure,Other Intensity/Depth Moderate Body Position Prone Comments gliding STMs firm and superficial with large cup and sustained pressure various areas of calf with instruction ankle ROM Taping Ktapiing Body Location R (patella tends to lateral glide causing discomfort subpatella) Treatment Focus medial glide support Skin Inspection normal color and skin integrity intact Comments instructed to remove if any adverse affects and if ok and support alignment/pain reduction can keep on 2-4 days with ability to wear in shower. Added Biofreeze for assisted more adhesive before taping (pink today ) Electric Stimulation Electric Stimulation Venezuelan Body Location R VMO Intensity to contraction Frequency 50 bps Contraction Type Normal Cycle 10 Ramp 2.0 Comments jo-ann with SAQ, slight hip ER for VMO was too much for pt , pulled on knee cap Physical Therapy Assessment Goals 4 Impairment squatting Impairment painful sit>stands, R knee PROM 3-115 degrees Short Term Goal (STG Pt will demonstrate R knee PROM 0-120 degrees in order ) to improve functional mobility. As of 06/21/25 goal met for flexion to 125 degrees , extension still limited to 3 degrees AROM following manual stretching I am able to get her to full extension STG Duration 07/04/25 Senior Care Goal (LTG) Pt will demonstrate x10 consecutive squats from knees at 90 degree angle without compensation with pain no greater than 1/10 in order to improve function. goal not yet met LTG Duration 08/15/25 3 Impairment walking endurance Impairment Normally walks 1-2 miles/day outside on uneven ground, unable to do this currently d/t R knee pain Senior Care Goal (LTG) Pt will report amb 2 miles outside on even ground without AD without pain in order to improve function. As of 06/21/25 pt reports it is easier to walk but she feels uneasy on hills and uneven ground still but its getting better LTG Duration 08/15/25 2 Impairment Stairs Impairment Painful and difficult descending stairs, has 8 stairs with 1 HR to deck R SLS 9s L SLS 6s Short Term Goal (STG Pt will improve balance vs B SLS to 15s on even surface ) in order to improve functional mobility. As of 06/21/25 this is Improved R SLS 11sec L SLS 10 sec STG Duration 07/04/25 Hypoid Gear Generator Goal (LTG) Pt will ascend and descend 8x6 stairs with reciprocal pattern without HR with normal pattern without pain in order to improve function. This is slowly getting better now that she is able to tilt at her pelvis now, she is still walking step to step LTG Duration 08/15/25 1 Impairment LEFS Impairment On eval: 38/80 Senior Care Goal (LTG) Pt will score no less than 72/80 on LEFS in order to improve functional mobility. Good progress LTG Duration 08/15/25 Assessment Summary Assessment Pt improved decreased calf tightness post manual, provided education on self STMs use tennis ball under calf rolling STMs vs MWM sustained pressure and ankle AROM good feedback response. Added eccentric calf raises 3 positions for increased calf flexibility with increased ankle mobility and lateral step down for hip abductor strengthening with cues for knee alignment with midfoot. Initiated Venezuelan stim to R VMO for strengthening for progression in patellar medical glide and decreased R knee pain lateraly. WATER ANALYST provided medial patellar glide Ktaping which patient states is very supportive for decreased pain and stability. She didn't realize until took tape off and found R patella very unstable. Is performing HEP to assist progress strength and cues as needed for alignement corrections for re-education of stability support. Physical Therapy Plan Frequency and Duration Frequency of 2x/Week Treatment Duration of 12 treatment (weeks) Plan of Care Start 05/23/25 Date Plan of Care End 08/15/25 Date Therapeutic Interventions Therapeutic Balance Training,Gait Training,Home Exercise Program, Interventions Joint Mobilizations,Manual Therapy,Neuromuscular Re- education,Orthotic/Prosthetic Management,Patient/ Caregiver Education,Self-Care/Home Management,Soft Tissue Mobilization,Taping,Therapeutic Activities, Therapeutic Exercises Modalities Cold Pack/Ice Massage,Electric Stimulation,Hot Packs, Iontophoresis,Traction- Mechanical,Ultrasound Next Visit Focus/Plan Next Note Type Treatment Note Next Visit Plan retape the knee with kinesiotape as needed, continue working on full knee extension, recheck newly added lateral step down, eccentric calf raises, single leg balance exercise to help her with ascending and descending stairs and start working on sit-stand exercise, continue with knee stabilization exercises, trial SL star glides/taps next tx and or BETTYU in clinic .
--- NOTE | 2025-07-03 10:51 | PT.OTN ---
Current Diagnoses Pain in unspecified knee (07/03/25) Physical Therapy Treatment Note PT OP: Lower Back/Lower Extremity Start: 05/23/25 09:06 Freq: Status: Active Protocol: Document 07/03/25 07:31 PD (Rec: 07/03/25 08:41 PD [id number]) Out-Patient Physical Therapy Visit Information Visit Information Visit Type Treatment Note Visit Note BARBARA Anna led session with patient permission and under direct supervision of MATT Pendleton. Visit Start Time 07:31 Visit Stop Time 08:14 Visit Number 9 Number of SPRINKLER WORKER Visits 2 Progress Note Due 07/21/25 OP-PT Subjective Patient Comments Patient Comments Pt reports R knee feels pretty good with the K taping but R calf extremely tight, feels like a rock. Pt has K tape at home but has not been successful at self taping yet. Pt felt R calf was tight on Wednesday and Wednesday and she did a lot of walking on Wednesday, calf was tight prior. Pt sees MD for diabetic check on on , MATT Pendleton recommends discussing calf with MD. Palpation Assessment Location Left calf Palpation Location L calf, 10 cm distal to popliteus, 41.5cm circumference 07/03 R calf Palpation Location R calf, 10cm distal to popliteus, 43cm circumference Palpation Details R calf diameter > L by 1.5 cm, no redness or heat noted , medial gastroc extremely tight on palpation, TRP, taught band present. Therapeutic Exercises Sitting Exercises LAQ Sitting Exercise LAQ Name Side right Resistance 5# AW Reps/Minutes x 5 Comments Trialed post STM and ice massage, caused crepitus in R knee at end of ext. Standing Exercises Lateral Step Down Standing Exercise Reviewed from HEP (declined HO), smaller step to reduce Name R knee crepitus. Side right Equipment Used rail support, 4 step Reps/Minutes 10 reps Comments cued knee alignment with midfoot, slow eccentric control step down- no pn Manual Therapy Treatment Consent Patient gave verbal Yes consent for manual treatment Soft Tissue Mobilization post leg Body Location R gastroc and soleus Mobilization Type Cross-Friction,Rolling,Sustained Pressure,Trigger Point Release,Other Intensity/Depth Deep Body Position Prone Comments gliding STMs firm and superficial with C strokes and sustained pressure focus on medial gastroc, TRP with with instruction for self ankle ROM. Taping Ktapiing Body Location R (patella tends to lateral glide causing discomfort subpatella) Treatment Focus medial glide support Skin Inspection normal color and skin integrity intact Comments Demonstrated and instructed pt in self taping. Pt declined attempting self taping during session but able to repeat steps and method of taping for home use. Pt has K tape at home. Manual Techniques Ice Massage Type Ice Massage over R medial gastroc Body Location R medial gastroc Body Position Prone, ankles on bolster Reps/Duration 6 minutes Comments Pt tolerated ice massage, skin showed normal redness at end of massage, pt felt relaxed during massage and reported better mobility of calf after STM and ice massage. Self-Care/Home Management Treatment Education Patient Education Body Mechanics,Home Exercise Program,Pain Management, Safety Other Education Instructed pt on home ice massage with someone to help her. Cautioned to use ice directly on skin only for 5- 10 minutes, moving small cup sized ice cube around tight area about 4 square. Pt had past problems with using ice packs directly over skin for too long and causing skin damage. Reviewed safe use of gel packs, with pillow case cover, for 10-20 minutes. Also instructed pt on self K taping at R lateral patella to improve tracking. Physical Therapy Assessment Goals 4 Impairment squatting Impairment painful sit>stands, R knee PROM 3-115 degrees Short Term Goal (STG Pt will demonstrate R knee PROM 0-120 degrees in order ) to improve functional mobility. As of 06/21/25 goal met for flexion to 125 degrees , extension still limited to 3 degrees AROM following manual stretching I am able to get her to full extension STG Duration 07/04/25 [facility] Goal (LTG) Pt will demonstrate x10 consecutive squats from knees at 90 degree angle without compensation with pain no greater than 1/10 in order to improve function. goal not yet met LTG Duration 08/15/25 3 Impairment walking endurance Impairment Normally walks 1-2 miles/day outside on uneven ground, unable to do this currently d/t R knee pain [facility] Goal (LTG) Pt will report amb 2 miles outside on even ground without AD without pain in order to improve function. As of 06/21/25 pt reports it is easier to walk but she feels uneasy on hills and uneven ground still but its getting better LTG Duration 08/15/25 2 Impairment Stairs Impairment Painful and difficult descending stairs, has 8 stairs with 1 HR to deck R SLS 9s L SLS 6s Short Term Goal (STG Pt will improve balance vs B SLS to 15s on even surface ) in order to improve functional mobility. As of 06/21/25 this is Improved R SLS 11sec L SLS 10 sec STG Duration 07/04/25 [facility] Goal (LTG) Pt will ascend and descend 8x6 stairs with reciprocal pattern without HR with normal pattern without pain in order to improve function. This is slowly getting better now that she is able to tilt at her pelvis now, she is still walking step to step LTG Duration 08/15/25 1 Impairment LEFS Impairment On eval: 38/80 [facility] Goal (LTG) Pt will score no less than 72/80 on LEFS in order to improve functional mobility. Good progress LTG Duration 08/15/25 Assessment Summary Assessment Pt improved R calf pain and tightness following STM and ice massage. Pt could benefit from further evaluation of R calf edema and tightness by MD. Pt to try self K taping of R knee at home as current tape comes off. Pt cautioned to avoid stretching of R gastroc while pain and tension present, focus on ROM with going into stretch until calf relaxes and is no longer in acute tension and edema state. HEP to stay within ROM that does not trigger knee crepitus or calf pain. Instructed pt on home ice massage with someone to help her. Cautioned to use ice directly on skin only for 5-10 minutes, moving small cup sized ice cube around tight area about 4 square. Physical Therapy Plan Frequency and Duration Frequency of 2x/Week Treatment Duration of 12 treatment (weeks) Plan of Care Start 05/23/25 Date Plan of Care End 08/15/25 Date Therapeutic Interventions Therapeutic Balance Training,Gait Training,Home Exercise Program, Interventions Joint Mobilizations,Manual Therapy,Neuromuscular Re- education,Orthotic/Prosthetic Management,Patient/ Caregiver Education,Self-Care/Home Management,Soft Tissue Mobilization,Taping,Therapeutic Activities, Therapeutic Exercises Modalities Cold Pack/Ice Massage,Electric Stimulation,Hot Packs, Iontophoresis,Traction- Mechanical,Ultrasound Other Referrals/Consults Referrals/Consults MATT Pendleton recommended pt seek MD consultation Recommended regarding R calf edema/tightness. Next Visit Focus/Plan Next Note Type Treatment Note Next Visit Plan PT to complete progress note at 07/17 appt. Assess R calf edema, tightness, self K taping for R knee. Progress to gentle R calf stretching and glut/HS strengthening as tolerated.
--- NOTE | 2025-07-17 17:07 | PT.OPPOC ---
Physical, Occupational & Speech Therapy At [facility] Current Diagnoses Pain in unspecified knee (07/17/25) Visit Care Team Role Provider Type Isaiah Yang MD Family Provider Physician Primary Care Provider Specialty: Family Practice Address: [address] [place], [address] Email: [email or web address] Browning PA-C Attending Provider Advanced Connie Cleaner Referring Provider Specialty: Orthopedics Orthopedic Surgery Address: [address] [place], [address] Email: [email or web address] Plan Of Care PT OP: Lower Back/Lower Extremity Start: 05/23/25 09:06 Freq: Status: Active Protocol: Document 07/17/25 10:53 [facility] (Rec: 07/17/25 11:32 [facility] [id number]) Out-Patient Physical Therapy Visit Information Visit Information Visit Type Progress Note Visit Note SD written 06/21/25 Visit Start Time 10:50 Visit Stop Time 11:30 Visit Number 10 Number of CARPET INSTALLER Visits 0 OP-PT Subjective Patient Comments Patient Comments pt's calf still very tight and swollen, she saw her primary care doctor who told her it is just a tight muscle, she is still feeling the pain at the medial joint line of the left knee. She still feels very limited and that she is walking on egg shells with her knee and that she isn't sure when its going to feel like it wants to give out or cause pain Cardio Equipment Recumbent Stepper (Sci-Fit) Duration (Minutes) 9 Resistance 0 Seat Position 4 Therapeutic Exercises Supine Exercises quad squeeze Supine Exercise Name quad squeeze Reps/Minutes 10 second hold x 10 reps Comments palella is in better alignment without the lateral tilt Standing Exercises calf stretches Standing Exercise Gastroc and soleus at wall HEP Name Side right Reps/Minutes 60 sec X 2 each Comments verbal and visual cues Therapeutic Activity Therapeutic Activity calf assessment Comments assessment of the right calf with gait and standing to rule out DVT, circumferential measurements Manual Therapy Treatment Soft Tissue Mobilization post leg Body Location R gastroc and soleus Mobilization Type Cross-Friction,Rolling,Sustained Pressure,Trigger Point Release,Other Intensity/Depth Deep Body Position Prone Comments Right calf feels very swollen and tight in the upper aspect of the gastroc, it does not feel warm or look red but definitely is swollen. There is a 3 cm difference between right and left calf muscles Physical Therapy Assessment Goals 4 Impairment squatting Impairment painful sit>stands, R knee PROM 3-115 degrees Short Term Goal (STG Pt will demonstrate R knee PROM 0-120 degrees in order ) to improve functional mobility. As of 06/21/25 goal met for flexion to 125 degrees , extension still limited to 3 degrees AROM following manual stretching I am able to get her to full extension STG Duration 07/04/25 Recreation Program Coordinator Goal (LTG) Pt will demonstrate x10 consecutive squats from knees at 90 degree angle without compensation with pain no greater than 1/10 in order to improve function. goal not yet met LTG Duration 08/15/25 3 Impairment walking endurance Impairment Normally walks 1-2 miles/day outside on uneven ground, unable to do this currently d/t R knee pain [facility] Goal (LTG) Pt will report amb 2 miles outside on even ground without AD without pain in order to improve function. As of 06/21/25 pt reports it is easier to walk but she feels uneasy on hills and uneven ground still but its getting better LTG Duration 08/15/25 2 Impairment Stairs Impairment Painful and difficult descending stairs, has 8 stairs with 1 HR to deck R SLS 9s L SLS 6s Short Term Goal (STG Pt will improve balance vs B SLS to 15s on even surface ) in order to improve functional mobility. As of 06/21/25 this is Improved R SLS 11sec L SLS 10 sec STG Duration 07/04/25 Recreation Program Coordinator Goal (LTG) Pt will ascend and descend 8x6 stairs with reciprocal pattern without HR with normal pattern without pain in order to improve function. This is slowly getting better now that she is able to tilt at her pelvis now, she is still walking step to step LTG Duration 08/15/25 1 Impairment LEFS Impairment On eval: 38/80 [facility] Goal (LTG) Pt will score no less than 72/80 on LEFS in order to improve functional mobility. Good progress LTG Duration 08/15/25 Assessment Summary Assessment 32 cm left calf circumference and 35 on the right pt presents with increased swelling today in her calf and continued knee pain. There is no warmth or redness but this calf swelling is new and presents almost like posterior compartment syndrome except without pain. Her knee continues to present with intermittent pain and instability. The patella is tracking better now and Adelita presents with improved quad control. I would like to refer Adelita back to ortho for further work up and possible MRI diagnostic testing Physical Therapy Plan Frequency and Duration Frequency of 2x/Week Treatment Duration of 12 treatment (weeks) Plan of Care Start 05/23/25 Date Plan of Care End 08/15/25 Date Next Visit Focus/Plan Next Note Type Treatment Note Next Visit Plan re measure the circumference of the calf, continue with strengthening and ROM exercises Plan of Care Dates Plan of Care Start Date 05/23/25 Plan of Care End Date 08/15/25 Electronically Signed by: Arabella Reynolds, PT 07/17/25 3525 If you are in agreement with this Plan of Care, please return a signed and dated copy. I have reviewed this Plan of Care and certify that the skilled therapy services above are required to meet the patient?s needs. Physician Signature Date Printed Name and Credentials Clinical Instructor Signature Printed Name and Credentials
--- NOTE | 2025-07-20 13:55 | PT-OP ANOTE ---
Pt had appointment with ortho and Washington's Cyst and possible tear to R knee (unknown mm) is suspected, MRI scheduled for Monday 07/23 with MD visit immediately after. Hold on therapy for today pending further diagnosis.
--- NOTE | 2025-07-31 09:02 | PT.OTN ---
Current Diagnoses Pain in unspecified knee (07/31/25) Physical Therapy Treatment Note PT OP: Lower Back/Lower Extremity Start: 05/23/25 09:06 Freq: Status: Active Protocol: Document 07/31/25 08:22 SP (Rec: 07/31/25 09:09 SP [id number]) Out-Patient Physical Therapy Visit Information Visit Information Visit Type Treatment Note Visit Start Time 08:22 Visit Stop Time 09:02 Visit Number 11 Number of AGRICULTURAL ECONOMIST Visits 1 Progress Note Due 08/17/25 OP-PT Subjective Patient Comments Patient Comments Pt reports physician ordered a Visco shot (gel injection) and not do a cortizone injection but insurance denied Visco shot so not sure what the next step is, has message into physician what to do. She acquired a compression sleeve to support calf, unsure if has right kind. She states step to step not sure how R knee will stabilize and worried might buckle. Cardio Equipment Recumbent Stepper (Sci-Fit) Duration (Minutes) 13 Resistance 3 Seat Position 12 Other BUEs/BLEs, 47 RPMs, 1.42 miles Therapeutic Exercises Sitting Exercises 4 way ankle Sitting Exercise added to HEP for ankle and calf mobility and Name strengthening Side right Resistance Tb#5 dark blue latex band Reps/Minutes 15 reps each Comments cued set up and slow control- good muscle effort no pain Standing Exercises Dynamic calf raises Standing Exercise 3 way ankle- good feedback response calf tension Name reduction (declined HO) Side bilateral Equipment Used heels off step, rail support Reps/Minutes 12 reps each position Comments cued slow eccentric control, pnfree range Manual Therapy Treatment Consent Patient gave verbal Yes consent for manual treatment Soft Tissue Mobilization post leg Body Location R gastroc and soleus Mobilization Type Myofascial Release Intensity/Depth light to minimal pressure Body Position Prone Comments Right calf little less swollen than previous tx but continues to be tight in the upper medial aspect of the gastroc, not warm no red in coloring. Self-Care/Home Management Treatment Education Patient Education Home Exercise Program,Safety Other Education PT discussed following up with orthopedic what next course of action after denial Visco Injection. PT approved AGRICULTURAL ECONOMIST to provide manual today and ok to wear acquired long leg compression sleeve more manageable to don/doff and keep in place than FRANCISCO wrap. Physical Therapy Assessment Goals 4 Impairment squatting Impairment painful sit>stands, R knee PROM 3-115 degrees Short Term Goal (STG Pt will demonstrate R knee PROM 0-120 degrees in order ) to improve functional mobility. As of 06/21/25 goal met for flexion to 125 degrees , extension still limited to 3 degrees AROM following manual stretching I am able to get her to full extension STG Duration 07/04/25 Correction Goal (LTG) Pt will demonstrate x10 consecutive squats from knees at 90 degree angle without compensation with pain no greater than 1/10 in order to improve function. goal not yet met LTG Duration 08/15/25 3 Impairment walking endurance Impairment Normally walks 1-2 miles/day outside on uneven ground, unable to do this currently d/t R knee pain Canoe Builder Goal (LTG) Pt will report amb 2 miles outside on even ground without AD without pain in order to improve function. As of 06/21/25 pt reports it is easier to walk but she feels uneasy on hills and uneven ground still but its getting better LTG Duration 08/15/25 2 Impairment Stairs Impairment Painful and difficult descending stairs, has 8 stairs with 1 HR to deck R SLS 9s L SLS 6s Short Term Goal (STG Pt will improve balance vs B SLS to 15s on even surface ) in order to improve functional mobility. As of 06/21/25 this is Improved R SLS 11sec L SLS 10 sec STG Duration 07/04/25 Canoe Builder Goal (LTG) Pt will ascend and descend 8x6 stairs with reciprocal pattern without HR with normal pattern without pain in order to improve function. This is slowly getting better now that she is able to tilt at her pelvis now, she is still walking step to step LTG Duration 08/15/25 1 Impairment LEFS Impairment On eval: 38/80 Correction Goal (LTG) Pt will score no less than 72/80 on LEFS in order to improve functional mobility. Good progress LTG Duration 08/15/25 Assessment Summary Assessment PT Arabella attended tx discussion results from physician and what the next course of action is planned for. Pt reports will stop by [facility] office to ask, not response to phone calls as of yet. Pt responded well to manual with no adverse affect to myofascial glides for circulation return support. Initiated resisted band ankle exercises for calf and ankle strength support and circulation support with no adverse effect. Continued body weight calf raises with no adverse affect. Will await ortho feedback how will support patient in return to prior level of activity. Physical Therapy Plan Frequency and Duration Frequency of 2x/Week Treatment Duration of 12 treatment (weeks) Plan of Care Start 05/23/25 Plan of Care End 08/15/25 Date Therapeutic Interventions Therapeutic Balance Training,Gait Training,Home Exercise Program, Interventions Joint Mobilizations,Manual Therapy,Neuromuscular Re- education,Orthotic/Prosthetic Management,Patient/ Caregiver Education,Self-Care/Home Management,Soft Tissue Mobilization,Taping,Therapeutic Activities, Therapeutic Exercises Modalities Cold Pack/Ice Massage,Electric Stimulation,Hot Packs, Iontophoresis,Traction- Mechanical,Ultrasound Next Visit Focus/Plan Next Note Type Treatment Note Next Visit Plan Next tx: re measure the circumference of the calf, continue with strengthening and ROM exercises
--- NOTE | 2025-08-07 10:07 | PT.OPDS ---
Current Diagnoses Pain in unspecified knee (07/31/25) Visit Care Team Role Provider Type Isaiah Yang MD Family Provider Physician Primary Care Provider Specialty: Family Practice Address: [address] [place], [address] Email: [email or web address] Browning PA-C Attending Provider Advanced Information Security Analyst Referring Provider Specialty: Orthopedics Orthopedic Surgery Address: [address] [place], [address] Email: [email or web address] Visit Number Visit Number 11 Discharge Summary PT OP: Lower Back/Lower Extremity Start: 05/23/25 09:06 Freq: Status: Active Protocol: Document 08/07/25 10:06 [facility] (Rec: 08/07/25 10:07 [facility] [id number]) Physical Therapy Assessment Assessment Summary Assessment At this time Adelita is out of insurance benefits for the year. We will discharge PT and she will continue to follow up with her ortho on next steps for pain control with most likely a cortisone injection if her insurance allows. Physical Therapy Plan Discharge Physical Therapy Discharge Reasons Plateau in Progress Discharge Comments Insurance benefits are met for the year
== END 2025-08-07 14:31 | disposition home or self-care (01) ==
LOC: PHYS 08:15
PROVIDERS: Family Provider Family Medicine; PCP Family Medicine; Referring Provider Physician Assistant Surgical; Visit Provider Physician Assistant Surgical
DX: M25.569 Pain in unspecified knee (principal)
CPT/HCPCS: 97014; 97110; 97140; 97162; 97530; 97535; G0283

== ENCOUNTER 2025-08-07 21:09 | Emergency (ER) | payer OTHER, SELFPAY ==
[2025-08-07 21:11] VITALS: BP 144/82; PULSE 71; RESP 18; TEMP 36.3; O2SAT 95; BMI 40.5
--- NOTE | 2025-08-07 22:56 | ED_ITS ---
HPI - Wound/Laceration
--- NOTE | 2025-08-07 22:56 | ED.WOUNDLAC ---
HPI - Wound/Laceration General Chief Complaint: Wound/Laceration Stated Complaint: Lt hand laceration Time Seen by Provider: 08/07/25 21:12 Source: patient Mode of arrival: Ambulatory History of Present Illness HPI narrative: 54-year-old woman with a history of asthma, arthritis, hypertension, hyperlipidemia who was working in the kitchen using a knife the knife slipped and she suffered a laceration left hand middle finger distal PIP palmar surface not involving the nail. It is a fairly deep flap like laceration however she is neurovascularly intact distally. There is still some oozing despite applying pressure for approximately 2 hours. No other injuries or complaints. Related Data Home Medications ?Medication ?Instructions ?Recorded ?Confirmed albuterol sulfate 90 mcg/actuation 2 puff inhalation Q4H PRN 03/23/18 08/03/25 aerosol inhaler Shortness Of Breath citalopram 10 mg tablet 1 tab PO QPM 03/23/18 08/03/25 citalopram 20 mg tablet 1 tab PO QPM 03/23/18 08/03/25 metoprolol tartrate 100 mg tablet 1 tab PO QPM 03/23/18 08/03/25 Respironics Dreamstation CPAP #1 ea 12/13/18 08/03/25 atorvastatin 40 mg tablet (Lipitor) 40 mg PO BEDTIME 03/27/21 08/03/25 metformin 500 mg tablet 500 mg PO BID 03/27/21 08/03/25 Previous Rx's ?Medication ?Instructions ?Recorded tranexamic acid 650 mg tablet 1,300 mg (2 x 650 mg) PO 3XD #30 04/16/23 tabs diclofenac sodium 1 % topical gel 2 g topical QID PRN Pain #100 grams 07/08/24 albuterol sulfate 90 mcg/actuation 2 puff inhalation Q6H PRN 11/26/24 aerosol inhaler (Ventolin HFA) shortness of breath or wheezing #8.5 grams meloxicam 7.5 mg tablet 7.5 mg PO DAILY #30 tabs 08/03/25 Allergies Allergy/AdvReac Type Severity Reaction Status Date / Time amoxicillin (AMOXICILLIN) AdvReac Mild Hives Verified 08/07/25 21:11 Sulfa (Sulfonamide AdvReac Mild Rash Verified 08/07/25 21:11 Antibiotics) (SULFA (SULFONAMIDE ANTIBIOTICS)) erythromycin base AdvReac Rash Verified 08/07/25 21:11 tetracycline AdvReac Rash Verified 08/07/25 21:11 Review of Systems Review of Systems Narrative: Pertinent positive and negative findings as per HPI Patient History Medical History silk brusher associated with adverse incidents Fibroids, intramural Metabolic syndrome Severe dysmenorrhea Menorrhagia with regular cycle Anal fissure Morbid obesity with body mass index (BMI) of 50.0 to 59.9 in adult Depression Asthma Tobacco dependency Hypertension Morbid obesity with BMI of 45.0-49.9, adult Obstructive sleep apnea of adult (~08/2018) Snoring Surgical History Status post tubal ligation (07/01/15) Status post delivery History of breast augmentation Family History Father Age: 77 Hypertension Mother Age: 75 High cholesterol Social History marital status: unmarried,living together details: with Soham Valencia, in [place] number of children: 2 household members: significant other and children lives independently: Yes caregiver/support person: No housing: house occupational status: employed alcohol intake: former substance use type: does not use tobacco type: cigarettes and vaping alcohol intake frequency: 0-2 drinks per day Exam Initial Vital Signs Initial Vital Signs: Vital Signs Temperature 97.3 F L 08/07/25 21:11 Pulse Rate 71 08/07/25 21:11 Respiratory Rate 18 08/07/25 21:11 Blood Pressure 144/82 H 08/07/25 21:11 Pulse Oximetry 95 08/07/25 21:11 Oxygen Delivery Method Room Air 08/07/25 21:11 General: Alert appropriate in no acute distress Respiratory: Able to speak in full sentences, no obvious respiratory distress Skin: No obvious rashes, warm and dry Neurologic: Grossly intact no obvious asymmetries or abnormalities Psych: appropriate insight and affect, cooperative Extremity: So left middle finger has a flap like 2 cm laceration to the pad of the D IP. Not involving bone, nail bed, nerve Procedures Laceration Repair Left middle finger: Time of procedure: 23:13 Site: hand Side (If applicable): left Size (cm): 2 Description: flap Depth: simple, single layer Local Anesthetic: lidocaine 1% Amount of anesthesia used (mL): 3 Pre-repair: wound explored and deep structures intact Skin layer closed with: nylon Skin layer suture size: 4-0 Number of sutures: 3 Technique: simple, interrupted and horizontal mattress Course Vital Signs Vital signs: Vital Signs - 8 hr 08/07/25 21:11 Temperature 97.3 F L Pulse Rate 71 Respiratory Rate 18 Blood Pressure 144/82 H Pulse Oximetry 95 Oxygen Delivery Method Room Air MDM - Wound/Laceration MDM Narrative Medical decision making narrative: 54-year-old woman presents with a cut to the middle finger left hand flap like laceration to the distal PIP from a clean knife. Wound is still oozing slightly. The areas cleaned, anesthetized. Horizontal mattress was used to close the central portion of the flap into simple interrupted is on either side or placed without complication. Bleeding has been controlled. Dressing was applied Discussed wound care and anticipated rate of recovery. Recommended suture removal in 7 days. Questions were answered, there was no indication for further imaging and she is safe for discharge Discharge Plan Departure Patient Disposition: Home Clinical Impression: Laceration Instructions: DI for Laceration Repair Activity Restrictions/Additional Instructions: Thank you for coming in and letting me be the 1st to ever help with any stitches The cut to your finger created a flap which is very difficult to heal without stitches. I used bigger stitch in the center to hold the flap down and then 2 smaller stitches on either side. You did very well tolerating this Please keep some antibiotic ointment and a Band-Aid over the wound for the 1st 2-3 days. After that just a simple Band-Aid we will be plenty The stitches should come out on or about August 15 If you find that you are having increasing pain, swelling, redness or any type of discharge, this is not what I would expect from routine wound healing and you do need to be re-evaluated Prescriptions: No Action tranexamic acid 650 mg tablet 1,300 mg PO 3XD Qty: 30 12RF metformin 500 mg tablet 500 mg PO BID atorvastatin [Lipitor] 40 mg tablet 40 mg PO BEDTIME metoprolol tartrate 100 mg tablet 1 tab PO QPM Patient Comments: TAKE 1 TABLET BY MOUTH ONCE A DAY FOR BLOOD PRESSURE CONTROL. citalopram 10 mg tablet 1 tab PO QPM Patient Comments: TAKE ONE BY MOUTH EVERY DAY IN ADDITION TO 20MG TABLET FOR A TOTAL OF30MG PER DAY. citalopram 20 mg tablet 1 tab PO QPM Patient Comments: TAKE ONE BY MOUTH EVERY DAY IN ADDITION TO 10MG TABLET FOR A TOTAL OF30MG DAILY albuterol sulfate [ProAir HFA] 90 mcg/actuation HFA aerosol inhaler 2 puff Inhalation Q4H PRN (Reason: Shortness Of Breath) Patient Comments: INHALE 2 PUFFS EVERY 4 HOURS NEEDED FOR SHORTNESS OF BREATH diclofenac sodium 1 % gel 2 g topical QID PRN (Reason: Pain) Qty: 100 0RF Rx Instructions: apply to single elbow, wrist or hand; for hand includes palm/fingers/back of hand albuterol sulfate [Ventolin HFA] 90 mcg/actuation HFA aerosol inhaler 2 puff inhalation Q6H PRN (Reason: shortness of breath or wheezing) Qty: 8.5 0RF meloxicam 7.5 mg tablet 7.5 mg PO DAILY Qty: 30 0RF (DME) Respironics Dreamstation CPAP Qty: 1 Dose Instruction: As directed Patient Comments: pressure: 12-16 cmH2O DME: [facility] Rx Instructions: As directed Referrals: Isaiah Yang MD [Primary Care Provider, Family Practice] Stand Alone Forms: Patient Portal/API
[2025-08-07] MEDS: BACITRACIN OINT 0.9 GM PCKT 1 APPLIC TOP (23:14)
[2025-08-07 23:25] VITALS: BP 130/84; PULSE 62; RESP 16; O2SAT 95
--- NOTE | 2025-08-07 23:25 | PC.NURSE ---
Wound dressed and finger splint applied. Pt instructed in after care.
== END 2025-08-07 23:20 | disposition home or self-care (01) ==
PROVIDERS: Emergency Provider Emergency Medicine; Family Provider Family Medicine; PCP Family Medicine
DX: S61.213A Laceration without foreign body of left middle finger without damage to nail, initial encounter (principal); W26.0XXA Contact with knife, initial encounter
CPT/HCPCS: 12001; 99283